=== PATIENT | male | born 1960 | race Caucasian/White ===

== ENCOUNTER 2025-04-12 18:23 | Inpatient (IN) | payer BC, SELFPAY ==
[2025-04-12] VITALS (9 sets, daily range): BP systolic 126–142; BP diastolic 81–109; BMI 25.7
[2025-04-12] MEDS: NSS 1000 IV (13:49)
[2025-04-12 14:02] LABS: Hematocrit 46.2 % (39.0-52.0); Hemoglobin 15.7 g/dL (13.0-18.0); Mean Corp Hgb Conc. 34.0 g/dL (33.0-37.0); Mean Corpuscular Volume 87.5 fL (80.0-94.0); Nucleated Red Blood Cells % 0 % (-); Platelet Count 188 10^3/uL (130-400); Red Cell Dist. Width 13.3 % (11.5-14.5)
[2025-04-12 14:25] LABS: ALT (SGPT) 61 U/L (0-50); AST (SGOT) 33 U/L (17-59); Albumin 4.7 g/dl (3.5-5.0); Alkaline Phosphatase 66 U/L (38-126); Blood Urea Nitrogen 22 mg/dl (9-20); Calcium 10.1 mg/dl (8.4-10.2); Carbon Dioxide 20 mmol/L (22-30); Chloride 107 mmol/L (98-107); Glucose 106 mg/dl (70-99); Magnesium 2.0 mg/dl (1.6-2.3); Potassium 5.1 mmol/L (3.5-5.1); Sodium 138 mmol/L (135-145); Total Protein 7.3 g/dl (6.3-8.2); eGFR > 60.00
[2025-04-12 14:32] LABS: Troponin I 0.059 ng/ml
[2025-04-12] MEDS: LASIX 40 MG IV (17:26)
--- NOTE | 2025-04-12 17:32 | HPS.HSE ---
Family Physician
-
Family Physician: Hermilo Suarez
Chief Complaint
-
exertional dyspnea
History of Present Illness
Patient is a 65-year-old male with past medical history significant for hypertension and insomnia who presented to [facility] ED for evaluation of exertional dyspnea. Patient reports having exertional dyspnea for about a week and then noticed tachycardia
on his smart watch. He contacted his primary care provider who referred him for evaluation and treatment in ED. Patient denies any fever, chills, dizziness, palpitations, cough, chest pain, nausea, vomiting, constipation, diarrhea or urinary
symptoms.
Medical History
Past Medical History
Past Medical History: Reports Other
Additional Past Medical History:
hypertension
insomnia
Past Surgical History: Reports Other
Additional Past Surgical History:
lipoma removed from base of neck
Social History
Tobacco: Vaping (vapes nicotine daily )
Alcohol: Occasional
Drug: None
Personal:
Living: With Family
Family History
Family History: Not pertinent
Allergies / Home Medications
Allergies reflects when Allergies were last updated in [employer].
Home Medications with original date entered in [employer]
Allergy/Medication List:
Allergies
Allergy/AdvReac Type Severity Reaction Status Date / Time
No Known Allergies Allergy Verified 04/12/25 11:29
Home Medications
amitriptyline 25 mg tablet 25 mg PO HS Mental Health/Anxiety 04/12/25
aspirin 81 mg tablet,delayed release 81 mg PO DAILY Heart Disease/Condition 04/12/25
calcium polycarbophil 625 mg tablet (FiberCon) 1,250 mg PO BID Supplement 04/12/25
lisinopril 20 mg tablet 20 mg PO HS Blood Pressure 04/12/25
therapeutic multivitamin 1 tab PO DAILY Supplement 04/12/25
Review of Systems
-
History Source: Patient
Constitutional: Reports No Symptoms
EENT: Reports No Symptoms
Respiratory: Reports Trouble Breathing (exertional dyspnea )
Cardiac: Reports No Symptoms
Abdomen/GI: Reports No Symptoms
: Reports No Symptoms
Musculoskeletal: Reports No Symptoms
Skin: Reports No Symptoms
Neurological: Reports No Symptoms
Endocrine: Reports No Symptoms
Hematologic/Lymphatic: Reports No Symptoms
Psych: Reports No Symptoms
Physical Exam
Vital Signs
Vital Signs
Temp Pulse Resp BP Pulse Ox
98.0 F 100 21 131/98 96
04/12/25 11:26 04/12/25 16:00 04/12/25 16:00 04/12/25 16:00 04/12/25 16:00
Physical Exam
General: Well Developed, Well Nourished, No Apparent Distress, Comfortable and Conversant
HEENT: NormoCephalic, Moist mucous membranes, Atraumatic, Nose Appears Normal and Ears Appear Normal
Respiratory: Clear and Non Labored Respirations
Cardiac: S1/S2, Regular Rhythm and Tachycardia
Breast: Deferred by me
GI: Soft, Non Tender, Non Distended and Normal Bowel Sounds; No Organomegaly
Rectal: Deferred by Provider
Genito-urinary: Deferred by me
Musculoskeletal: No Clubbing, No Cyanosis and No Edema
Skin: Warm and IV/Catheter Site
Neuro: Awake, Alert, AO x 3 and Nonfocal/grossly intact
Psych: Calm and Intact Judgment/Insight
Laboratory Results
-
04/12/25 13:48
04/12/25 13:48
Laboratory Results
Total Bilirubin 0.9 mg/dl (0.2-1.3) 04/12/25 13:48
AST 33 U/L (17-59) 04/12/25 13:48
ALT 61 U/L (0-50) H 04/12/25 13:48
Alkaline Phosphatase 66 U/L (38-126) 04/12/25 13:48
Troponin I 0.059 ng/ml H* 04/12/25 13:48
Data Reviewed
-
CT Scan: Report Reviewed by me (Chest: No CTA evidence for an acute pulmonary thromboembolism. Findings most suggestive of pulmonary edema with moderate bilateral pleural effusions, hazy bilateral groundglass pulmonary opacities, and cardiomegaly.
Suspected degree of right heart failure with contrast reflux from the right atrium )
Lab Data: Labs Reviewed by me (WBC 12.8, Neut 80.1, trop 0.059, BNP 4120)
Impression/Plan
-
IMPRESSION/PLAN:
#exertional dyspnea with fluid overload likely 2/2 acute congestive heart failure exacerbation
Chest CT: No CTA evidence for an acute pulmonary thromboembolism.
Findings most suggestive of pulmonary edema with moderate bilateral pleural effusions, hazy bilateral groundglass pulmonary opacities, and cardiomegaly. Suspected degree of right heart failure
with contrast reflux from the right atrium into the IVC.
EKG: SINUS TACHYCARDIA WITH OCCASIONAL PREMATURE VENTRICULAR COMPLEXES
RIGHTWARD AXIS
LOW VOLTAGE QRS
NONSPECIFIC T WAVE ABNORMALITY
- Admit to telemetry
- Consult Cardiology
- IV Lasix 40mg daily
- ECHO in AM
- daily weights
- I & Os
#hypertension
- continue lisinopril
#insomnia
- continue amitriptyline
Code status: full code
DVT prophylaxis: lovenox sq
--- NOTE | 2025-04-12 18:04 | W.PN.UPDATE ---
Update Note
Progress Note Update
This is an addendum to H&P written by Merlene Patterson on 04/12/2025. �Patient seen and examined independently with [facility].
65-year-old male past medical history of hypertension, presenting with shortness of breath for the past week with exertion with some cough and elevated heart rate noticed on smart watch. �No swelling or chest pain. �No fevers or chills.
Cardiac BNP of 4000. �Troponin 0.059. �Labs show leukocytosis. �EKG shows sinus tachycardia with occasional PVCs. �CT PE shows pulmonary edema with moderate bilateral pleural effusions, hazy bilateral groundglass pulmonary opacities and cardiomegaly.
Patient with new onset acute CHF exacerbation with moderate bilateral pleural effusions. �40 IV Lasix daily, echocardiogram. �Cardiology consulted. �Patient with minimal symptoms, hold off on thoracentesis at this time.
--- NOTE | 2025-04-12 18:12 | ED.GENMED ---
History of Present Illness
<Sammie Lopez PA-C - Last Filed: 04/12/25 18:14>
General
Chief Complaint: Heart Rate Problem
Source: patient
Exam Limitations: none
Time Seen by Provider: 04/12/25 13:15
Nursing documentation reviewed up to this point in time: agreed with
History of Present Illness
History of Present Illness:
65 y/o M h/o HTN
here with 1 week of dyspnea, feels it worse at night, says he noticed he had trouble runnin cecy the treadmill last week due to fatigue which is unusual
but then specifically the past 2 days has felt pretty sob
no ches tpain or pleuritic pain
no exertional chest pain
says he noticed his resting HR was > 100 which is very unusal
no fever/chills/cough/cold/leg swelling
sent from PCP office today for abnormal ekg
Course
<Sammie Lopez PA-C - Last Filed: 04/12/25 18:14>
Orders/Labs/Results
Orders:
Orders
04/12/25 11:21
Electrocardiogram (*1) Urgent
Reason for Study: Chest Pain
EKG- Treatment ONCE
04/12/25 13:39
0.9% Sodium Chloride 1000 ml [Nss] 1,000 ml IV BOLUS
04/12/25 13:40
CT Chest PE Study Urgent
Comment:
Reason For Exam: tachycardia, sob
04/12/25 13:48
Complete Blood Count/With Diff Urgent
Comprehensive Metabolic Panel Urgent
Magnesium Urgent
NT-proBNP Urgent
TSH Reflex To Free T4 Urgent
Troponin I Urgent
04/12/25 17:02
Furosemide [Lasix] 40 mg IV NOW STA
04/12/25 17:12
Furosemide [Lasix] 40 mg IV NOW STA
04/12/25 17:57
Admit/Transfer Patient As Directed
Co-Sign Provider:
Level of Care: Inpatient admission
Assign to:: Telemetry
Physician / Group: Natalya Shirley
Diagnosis: acute congestive heart failure exacerbation
Reason for Telemetry: Acute Heart Failure
Date to Stop Telemetry: 04/15/25
Time to Stop Telemetry: 11:00
Reason for Hospitalization: exertional dyspnea, with fluid overload, acute congestive heart failure
exacerbation
Expected length of stay greater than two midnights?: Yes
ELOS- Estimated Length of Stay in days: 2
I certify the patient meets the requirements for IP care: Yes
04/12/25 17:58
PRN Pain Medication Management As Directed
May give lesser potent ordered pain med per pt: Yes
preference::
Protocol:: Medication orders for pain may be administered in a
manner that supports deferring to patient preference
when the pt is:
- Requesting an ordered lesser potent pain medication.
Least to most potent pain medications are defined
as: acetaminophen < NSAID < tramadol < opioids
(morphine, oxycodone, hydromorphone).
- Requesting a lesser dose of the same medication IF
ORDERED.
- Requesting a less intrusive route of administration
if both routes are prescribed by the provider (PO <
IV).
04/12/25 17:59
Code Status As Directed
Resuscitation Status: Full Code
04/15/25 11:00
DC Protocol for Telemetry ONCE
Abnormal Lab Results
04/12/25
13:48
WBC 12.8 H 10^3/uL
(4.8-10.8)
MPV 12.9 H fL
(7.4-10.4)
Absolute Neuts (auto) 10.2 H 10^3/uL
(1.4-6.5)
Neutrophils % 80.1 H %
(42.2-75.2)
Lymphocytes % 15.5 L %
(20.5-51.1)
Carbon Dioxide 20 L mmol/L
(22-30)
BUN 22 H mg/dl
(9-20)
Glucose 106 H mg/dl
(70-99)
ALT 61 H U/L
(0-50)
Troponin I 0.059 H* ng/ml
04/12/25 13:48
04/12/25 13:48
Vital Signs
Initial and Last Documented VS:
Initial Vital Signs
Temp Pulse Resp BP Pulse Ox
98.0 F 117 16 140/103 98
04/12/25 11:26 04/12/25 11:26 04/12/25 11:26 04/12/25 11:26 04/12/25 11:26
Last Documented Vital Signs
Temp Pulse Resp BP Pulse Ox
98.0 F 107 20 131/98 96
04/12/25 11:26 04/12/25 17:30 04/12/25 17:30 04/12/25 16:00 04/12/25 18:14
<An Garay MD - Last Filed: 04/12/25 18:34>
Orders/Labs/Results
Orders:
Orders
04/12/25 11:21
Electrocardiogram (*1) Urgent
Reason for Study: Chest Pain
EKG- Treatment ONCE
04/12/25 13:39
0.9% Sodium Chloride 1000 ml [Nss] 1,000 ml IV BOLUS
04/12/25 13:40
CT Chest PE Study Urgent
Comment:
Reason For Exam: tachycardia, sob
04/12/25 13:48
Complete Blood Count/With Diff Urgent
Comprehensive Metabolic Panel Urgent
Magnesium Urgent
NT-proBNP Urgent
TSH Reflex To Free T4 Urgent
Troponin I Urgent
04/12/25 17:02
Furosemide [Lasix] 40 mg IV NOW STA
04/12/25 17:12
Furosemide [Lasix] 40 mg IV NOW STA
04/12/25 17:57
Admit/Transfer Patient As Directed
Co-Sign Provider:
Level of Care: Inpatient admission
Assign to:: Telemetry
Physician / Group: Natalya Shirley
Diagnosis: acute congestive heart failure exacerbation
Reason for Telemetry: Acute Heart Failure
Date to Stop Telemetry: 04/15/25
Time to Stop Telemetry: 11:00
Reason for Hospitalization: exertional dyspnea, with fluid overload, acute congestive heart failure
exacerbation
Expected length of stay greater than two midnights?: Yes
ELOS- Estimated Length of Stay in days: 2
I certify the patient meets the requirements for IP care: Yes
04/12/25 17:58
PRN Pain Medication Management As Directed
May give lesser potent ordered pain med per pt: Yes
preference::
Protocol:: Medication orders for pain may be administered in a
manner that supports deferring to patient preference
when the pt is:
- Requesting an ordered lesser potent pain medication.
Least to most potent pain medications are defined
as: acetaminophen < NSAID < tramadol < opioids
(morphine, oxycodone, hydromorphone).
- Requesting a lesser dose of the same medication IF
ORDERED.
- Requesting a less intrusive route of administration
if both routes are prescribed by the provider (PO <
IV).
04/12/25 17:59
Code Status As Directed
Resuscitation Status: Full Code
04/15/25 11:00
DC Protocol for Telemetry ONCE
Abnormal Lab Results
04/12/25
13:48
WBC 12.8 H 10^3/uL
(4.8-10.8)
MPV 12.9 H fL
(7.4-10.4)
Absolute Neuts (auto) 10.2 H 10^3/uL
(1.4-6.5)
Neutrophils % 80.1 H %
(42.2-75.2)
Lymphocytes % 15.5 L %
(20.5-51.1)
Carbon Dioxide 20 L mmol/L
(22-30)
BUN 22 H mg/dl
(9-20)
Glucose 106 H mg/dl
(70-99)
ALT 61 H U/L
(0-50)
Troponin I 0.059 H* ng/ml
04/12/25 13:48
04/12/25 13:48
Vital Signs
Initial and Last Documented VS:
Initial Vital Signs
Temp Pulse Resp BP Pulse Ox
98.0 F 117 16 140/103 98
04/12/25 11:26 04/12/25 11:26 04/12/25 11:26 04/12/25 11:26 04/12/25 11:26
Last Documented Vital Signs
Temp Pulse Resp BP Pulse Ox
98.0 F 107 20 131/98 96
04/12/25 11:26 04/12/25 17:30 04/12/25 17:30 04/12/25 16:00 04/12/25 18:14
<Sammie Lopez PA-C - Last Filed: 04/12/25 18:14>
*Pulse Oximetry
SaO2: 96
Oxygen Mode of Delivery: Room air
ED Attending Note
<Sammie Lopez PA-C - Last Filed: 04/12/25 18:14>
-
Portions of this chart may have been created with voice recognition software.� Occasional wrong word or��sound alike� substitutions may have occurred due to the inherent limitations of voice recognition software.
<An Garay MD - Last Filed: 04/12/25 18:34>
ED Attending Note
Patient seen and examined by attending physician: Yes
I performed the substantive portion of visit, reviewed & personally made and approve the management plan that is documented in note by myself or ESTEBAN.: Yes
ED Attending Note:
I have seen and evaluated the patient with a [id number] encounter. I have spoken to the [ESTEBAN] and involved in the medical history, the physical exam, medical decision making.
Evaluation and management service: agree unless noted differently below.
Results interpretation: agree unless noted differently below.
65-year-old male with history of hypertension presenting to the emergency room with shortness of breath. Patient states that last week he noticed that when he was running or exerting himself he would be more tired and short of breath. Denies any
chest pain. He does state that the difficulty breathing is worse when he lies flat. No leg swelling hemoptysis recent travel. Today went to his primary care doctor who obtained an EKG and told him to come to the emergency for further evaluation.
During my evaluation patient is resting comfortably. He does have very fine crackles at the bases. No edema to the legs. Concern for new onset heart failure versus ACS. EKG per my interpretation with no acute ST changes. Will check blood work
and CT scan. Anticipate admission.
Discharge Plan
Departure
Patient Disposition: Admit
Date of Disposition: 04/12/25
Time of Disposition: 17:27
Admit to: Telemetry
Presentation/result/management discussed w/ accepting MD/DO: Hospitalist
Patient with high blood pressure during this ER visit?: Yes
Condition: Fair
Covid-19: Not Applicable
Discharge Problem:
New onset of congestive heart failure
Interventions
Interventions:
*Risk Screen - Suicide Last Done: 04/12/25 11:26
*General Assessment Last Done: 04/12/25 12:38
*Neglect/Abuse Screening Last Done: 04/12/25 11:26
*ED- Fall Risk Assessment Last Done: 04/12/25 12:38
*ED COVID-19 Vaccine History Last Done: 04/12/25 12:38
ED- Cardiac Assessment Last Done: 04/12/25 12:38
ED- Pulmonary Assessment Last Done: 04/12/25 12:38
[2025-04-12 20:32] LABS: Troponin I 0.069 ng/ml
[2025-04-12] MEDS: ZESTRIL 20 MG PO (20:37)
[2025-04-12] MEDS: FIBERCON 1250 MG PO (20:38)
[2025-04-12] MEDS: ELAVIL 25 MG PO (20:38)
[2025-04-13] VITALS (12 sets, daily range): BP systolic 103–133; BP diastolic 72–98; BMI 25.3
[2025-04-13 03:09] LABS: Troponin I 0.083 ng/ml
[2025-04-13 07:35] LABS: Blood Urea Nitrogen 22 mg/dl (9-20); Calcium 9.5 mg/dl (8.4-10.2); Carbon Dioxide 28 mmol/L (22-30); Chloride 108 mmol/L (98-107); Estimated Creatinine Clearance 87 ml/min; Glucose 112 mg/dl (70-99); HDL Cholesterol 41 mg/dl; LDL Cholesterol, Calculated 103 mg/dl; Potassium 5.1 mmol/L (3.5-5.1); Sodium 144 mmol/L (135-145); Very Low Density Lipoprotein 18 mg/dl (0-30); eGFR > 60.00
[2025-04-13 07:37] LABS: Troponin I 0.078 ng/ml
--- NOTE | 2025-04-13 08:23 | CON.CAR ---
Addendum entered and electronically signed by Andrea Copeland MD 04/13/25 11:24:
Attending addendum: Patient seen and examined. PA note reviewed and findings independently confirmed by me. I met with patient and his and performed independent history and physical exam. Briefly, this is a physically active 65-year-old
gentleman who presented to [facility] with a relatively recent onset of PND and exertional dyspnea. He noted that his heart rates were a little bit elevated and that he was physically more short of breath with exertion. At baseline, Mr. Alex (~) is physically active. He runs intermittently somewhere between 3 and 5 miles and walks a golf course carrying his bag. He has noticed no significant change in these activities over the past several weeks but did notice that he was more
short of breath when performing higher levels of physical exertion. Ultimately, his mildly elevated heart rate and exertional intolerance as well as PND led him to seek medical attention.
He does have a past history of hypertension treated with lisinopril 20 mg daily. Home blood pressures are typically very well-controlled.
Serial troponin measures just above the normal range at 0.069, 0.083, and 0.078 ng/mL
Echocardiogram: LVEF estimated 15-20% and is globally hypokinetic by visual estimation and 20% by Noble's method of discs. RV: Dilated, LA: Severely dilated, RA: Moderately dilated, MV: Severe mitral regurgitation, AV: Thickened and sclerotic
with mild aortic insufficiency, TV: Mild-moderate TR with estimated PAP is a 48 mmHg
Physical Exam
GEN: AAO x 3.��No acute distress. He is sitting in a chair in no acute distress. Speaks in full sentences. Does not appear dyspneic.
HEENT:��NC/AT, sclera are anicteric, hearing and nares are normal.��MMM
NECK: Supple.��Normal JVP
LUNGS: Clear to bases bilaterally.��No wheezing
CV: Regular rate and rhythm.��Normal S1/S2.��No S3, No S4.��Murmur: None appreciated
ABD : Soft, NT, ND, No HSM.��Bowel sounds are present.
EXT: No CCE
NEURO: No focal neurologic deficits
Social history: No alcohol. Former smoker. Current vaping
IMPRESSION/RECOMMENDATION:
- Newly diagnosed cardiomyopathy with acute heart failure symptoms
No anginal symptoms. No history of alcohol use. No recent viral illness.
Will proceed with right and left heart catheterization to delineate etiology for newly diagnosed cardiomyopathy
Will likely need guideline directed medical therapy for heart failure to include oral beta-jose carlos, CARMEN/ARB, spironolactone, and SGLT2 versus GLP-1 depending on results of angiogram
Hemodynamics will be assessed at the time of catheterization
Discussed the risks and benefits of proceeding with coronary angiography and possible stenting
-Severe mitral regurgitation
Appears to be secondary mitral regurgitation from dilated cardiomyopathy as the mitral valve structurally appears normal.
Will need guideline directed medical therapy
Could consider ALEJANDRA to evaluate for structural cause of significant mitral regurgitation
-History of former tobacco use with current vape
-Elevated glucose
-Recent lipid profile was notable for an LDL cholesterol of 103 mg/dL. Await results of coronary angiography to determine if additional of statin therapy will be needed
Original Note:
Consultation
Consultation Request
Date/Time Consultation Requested: 04/12/2025 and 190
Date/Time Consultation Performed: 04/13/2025 at 0834
Requesting Provider: Dr. Amarjit Negrete
Performing Provider: Dr. Abebe
Reason for Consultation: Newly diagnosed acute HF unknown EF
Medical History
-
History of Present Illness:
Patient came to [facility] ER yesterday with increased SOB and was admitted with acute HF and cardiology is now consulted. 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 He also follow his HR on [employer] watch and 1 week
ago noted that his HR was consistently 80-90 instead of his usual 50-60, but no associated palpitations. Also last week patient with new fatigue and exercise intolerance. No edema or bloating, but started with orthopnea on Saturday and saw his PCP
yesterday and then referred to the ER where pro-BNP was 4120 and CXR showed pleural effusion. Patient reports symptomatic improve with IV diuresis overnight.
PMH:
h/o smoking, now vaping
HTN
Past Medical History
Past Medical History: Other (In HPI)
Past Surgical History: None
Social History
Tobacco: Vaping
Alcohol: Occasional
Drug: None
Personal:
Living: With Family
Family History
Family History: CAD (father with CAD in his 80s)
Allergies / Home Medications
Allergy/AdvReac Type Severity Reaction Status Date / Time
No Known Allergies Allergy Verified 04/12/25 11:29
�Medication �Instructions �Recorded �Confirmed �Type
amitriptyline 25 mg tablet 25 mg PO HS Mental Health/Anxiety 04/12/25 04/12/25 History
aspirin 81 mg tablet,delayed 81 mg PO DAILY Heart 04/12/25 04/12/25 History
release Disease/Condition
calcium polycarbophil 625 mg 1,250 mg PO BID Supplement 04/12/25 04/12/25 History
tablet (FiberCon)
lisinopril 20 mg tablet 20 mg PO HS Blood Pressure 04/12/25 04/12/25 History
therapeutic multivitamin 1 tab PO DAILY Supplement 04/12/25 04/12/25 History
Review of Systems
-
History Source: Patient and Family ( by phone in room)
All other systems: Negative unless noted
Physical Exam
Vital Signs
Temp Pulse Resp BP Pulse Ox
97.8 F 104 18 133/98 96
04/13/25 07:08 04/13/25 07:08 04/13/25 07:08 04/13/25 07:08 04/13/25 07:08
GEN: NAD. AAOx3
HEENT: EOMI, MMM
LUNGS: RA. CTA B/L, no wheeze
CV: Sinus tachycardia on tele. No murmur
ABD: soft, BS+, NT/ND
EXT: No edema
NEURO: Gross non-focal
SKIN: No rash
Lab Results
04/12/25 13:48
04/13/25 06:56
Troponin I 0.078 ng/ml H* 04/13/25 06:56
Rrk-G-Gqwhlrdwbrz Pept 4120 pg/ml 04/12/25 13:48
Impression / Plan
-
PCP: Dr. Suarez
Cardiology: None prior to admission
Impression:
Admitted with acute HF 04/12/2025
Acute HFrEF
Newly diagnosed cardiomyopathy, EF 15 to 20% by echo 04/13/2025
Elevated troponin
h/o smoking, now vaping
HTN
Hyperglycemia
Severe MR by echo 04/13/2025
Echo 04/13/2025: EF 15 to 20%, RV dilated with reduced systolic function, severe LA dilatation and moderate RA dilatation, severe MR, mild aortic insufficiency, mild to moderate TR with PAP 48 mmHg
Plan:
-Patient came to [facility] ER yesterday with increased SOB and was admitted with acute HF and cardiology is now consulted. 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 He also follow his HR on [employer] and 1 week
ago noted that his HR was consistently 80-90 instead of his usual 50-60, but no associated palpitations. Also last week patient with new fatigue and exercise intolerance. No edema or bloating, but started with orthopnea on Saturday and saw his PCP
yesterday and then referred to the ER where pro-BNP was 4120 and CXR showed pleural effusion. Patient reports symptomatic improve with IV diuresis overnight.
-ECG reviewed by me looks like sinus tachycardia,, but no previous for comparison. Will ask EP to review and exclude any type of atypical atrial tachycardia
-Patient noticed HR was 80-90 instead of his usual 50-60, but this just started last week and no associated palpitations. Patient has not been on BB before, but is willing to try Coreg 3.125 mg BID
-Outpatient dose of lisinopril 20 mg daily has been continued
-Patient is willing to start Farxiga 10 mg daily, we specifically reviewed watching for and groin infections.
-Follow labs and patient willing to start spironolactone 12.5 mg daily.
-Weight is down 4 lbs overnight with Lasix 40 mg IV daily
-Troponin 0.059 initially and peaked at 0.083 and is now trending down. No chest pain. No acute ischemic changes on ECG. Given new CM patient recommended cardiac catheterization to exclude CAD. We talked about risk versus benefit and he is
willing to proceed. Plan is for cardiac cath today
-Patient is hyperglycemic, HgbA1c level added by me
-LDL 103, pending results of cardiac cath would consider starting atorvastatin
-Talked with patient's by phone for 13 minutes 46 seconds, essentially throughout the HPI. Updated hospitalist attending via TT about plans for cath today
[2025-04-13] MEDS: FIBERCON 1250 MG PO ×2 (08:39→21:03)
[2025-04-13] MEDS: ASPIR LOW (ENTERIC COATED) 81 MG PO (08:39)
[2025-04-13] MEDS: LASIX 40 MG IV (08:39)
[2025-04-13] MEDS: THERAGRAN 1 TABLET PO (08:39)
[2025-04-13 12:57] LABS: Glycohemoglobin (HgbA1c) 5.7 % (4.0-5.6)
--- NOTE | 2025-04-13 13:47 | ITS.CL.CATH ---
[employer] - Catheterization
Cardiac Catheterization
Procedure Report:
RIGHT AND LEFT HEART STUDY
Date of Procedure: April 13, 2025
Referring: Dr. Andrea Copeland
PROCEDURES:
1. Right heart catheterization
2. Left heart catheterization with coronary and single-plane left ventriculography
INDICATION: Newly diagnosed cardiomyopathy and acute heart failure
ACCESS: Right radial artery, 6 [place] sheath in right brachial vein, 5 [place] sheath
HEMODYNAMICS : mmHg
RA (m) : 15
RV (s/d) : 46/14, 19
PA (s/d, m) : 44/27, 39
PCWP (m) : 30
AO (s/d, m) : 116/86, 97
LV (s/d) : 114/20
LVEDP : 33
Estimated [place] Cardiac Output: 4.2 L / min and Cardiac Index: 2.1 L/ min / m-2
Systemic vascular resistance: 19.5 Wood units or 1562 [id number](-5)
Pulmonary vascular resistance: 2.1 Wood units or 171 [id number](-5)
CORONARY FINDINGS :
Dominance: Right
LEFT MAIN: Mild ostial mild distal stenosis
LEFT ANTERIOR DESCENDING: The LAD arises normally from the left main and runs in the anterior interventricular groove. The mid LAD has a 20% stenosis. The remainder of the vessel is widely patent.
CIRCUMFLEX: The circumflex supplies a single sizable obtuse marginal branch that has a 30% proximal stenosis
RIGHT CORONARY ARTERY: The right coronary artery is a dominant vessel with only minor irregularities over its course. The PDA has a 40% mid stenosis. The posterolateral branch appears widely patent
VENTRICULOGRAPHY: Left ventriculography is performed in an PAULINO projection. The digital single-plane left ventricular ejection fraction is visually estimated at 15%. There is+2 to +3 mitral regurgitation
SEDATION: 40 minutes of procedural sedation was utilized. An independent biomedical instrument technician was present to assist with and help manage the patient's level of consciousness and physiologic status
RADIATION SUMMARY: Fluoro Time (min): 4.6, Dose (mGy): 485, DAP (Gy.cm2) : 36.7
CONCLUSIONS
1. Elevated right and left ventricular filling pressures
2. Dilated cardiomyopathy with global hypokinesis and visually estimated ejection fraction of 15%
3. Nonobstructive coronary artery disease
RECOMMENDATIONS
1. Guideline directed medical therapy for nonischemic cardiomyopathy. Add oral beta-jose carlos 12.5 mg metoprolol XL p.o. twice daily with further titration as heart rate and blood pressures tolerates. Continue lisinopril 20 mg daily and consider
the addition of spironolactone, however, baseline potassium is 5.0. Will add SGLT2 inhibitor.
2. Titrate guideline directed medical therapy as tolerated
3. Repeat echocardiogram in 3 months to reassess LVEF
Copy to: Dr. Andrea Copeland
--- NOTE | 2025-04-13 15:52 | W.PN.HOSP.TC ---
Today's Communication/Plan
-
Assessment / Plan
Assessment / Plan
NAD
Scleral Anicteric
MMM
No JVD
CTABL
RRR, S1/S2
Soft, NT, ND, BS+
Warm, Dry
AAOx3
Calm
Acute, new onset HFrEF exacerbation, NYHA class II-III
IV diuretics
Keep K greater than 4 magnesium greater than 2
Daily weights
Monitor urinary output
Continue lisinopril
Started on Farxiga and beta-jose carlos
New reduced EF, will need ischemic evaluation with coronary angiography plus minus intervention
Hypertension
Continue lisinopril
Insomnia
Continue amitriptyline
Anticipated Discharge: 24 - 48 hours
Subjective/Interval History
-
Date of Service: April 13, 2025
Seen and examined. No new complaints. No acute overnight events.
Objective Data
-
Labs:
Laboratory Results
04/13/25
06:56
Sodium 144
Potassium 5.1
Chloride 108 H
Carbon Dioxide 28
BUN 22 H
Creatinine 0.9
Glucose 112 H
Calcium 9.5
Vital Signs:
Vital Signs
Temp Pulse Resp BP Pulse Ox
98.0 F 98 18 114/81 98
04/13/25 14:46 04/13/25 14:46 04/13/25 14:46 04/13/25 14:46 04/13/25 14:46
I&O
04/12/25 04/13/25 04/14/25
06:59 06:59 06:59
Intake Total 240 / 240
Balance 240 / 240
--- NOTE | 2025-04-13 16:07 | CM ---
Patient seen bedside, initial assessment completed. Patient is a 65-year-old male with past medical history significant for hypertension and insomnia who presented to [facility] ED for evaluation of exertional dyspnea.
Patient resides w/ spouse and mother in law in a 2STH, 3 steps to enter. Patient is independent in all areas, no DME. No therapy hx reported.
Address, point of contact and insurance verified
PCP: Hermilo Suarez
Pharmacy: [facility]
CM consulted for charles check for Jardiance and Farxiga.
Patient has rx plan through [employer]. Per plan, Jardiance is covered, for 30 day supply, co pay would be $85, for 90 day co pay would be $170. Farxiga is not covered
Updated ordering physician
Plan: Home, no needs likely
[2025-04-13] MEDS: LOVENOX 40 MG SC (18:11)
--- NOTE | 2025-04-13 21:00 | PTCARENOTE ---
patient with right radial site hematoma. overnight provider notified. this RN advised to manually hold pressure and increase frequency of neurovascular checks. this RN did notify Dr. Marcio Addison, with cardiology. Azael advised, this RN, to
hold additional pressure if needed to assure hemolysis, apply a pressure bandage, and have patient minimize activity overnight. patient laying in bed, with pressure dressing applied, extremity elevated with ice applied. No further bleeding noted.
Neurovascular checks WNL.
[2025-04-13] MEDS: ZESTRIL 20 MG PO (21:02)
[2025-04-13] MEDS: ELAVIL 25 MG PO (21:02)
[2025-04-13] MEDS: TOPROL XL 12.5 MG PO (21:03)
[2025-04-14 02:58] VITALS: BP 107/69
[2025-04-14 06:00] VITALS: BMI 25.3
[2025-04-14 07:08] VITALS: BP 108/72
[2025-04-14] MEDS: FIBERCON 1250 MG PO ×2 (07:32→19:29)
[2025-04-14] MEDS: FARXIGA 10 MG PO (07:33)
[2025-04-14] MEDS: TOPROL XL 12.5 MG PO ×2 (07:33→19:29)
[2025-04-14] MEDS: LASIX 40 MG IV (07:34)
[2025-04-14] MEDS: ASPIR LOW (ENTERIC COATED) 81 MG PO (07:34)
[2025-04-14] MEDS: THERAGRAN 1 TABLET PO (07:34)
[2025-04-14 08:41] LABS: Hematocrit 43.9 % (39.0-52.0); Hemoglobin 14.6 g/dL (13.0-18.0); Mean Corp Hgb Conc. 33.3 g/dL (33.0-37.0); Mean Corpuscular Volume 88.5 fL (80.0-94.0); Platelet Count 161 10^3/uL (130-400); Red Cell Dist. Width 13.6 % (11.5-14.5)
[2025-04-14 09:08] LABS: Blood Urea Nitrogen 28 mg/dl (9-20); Calcium 9.2 mg/dl (8.4-10.2); Carbon Dioxide 25 mmol/L (22-30); Chloride 110 mmol/L (98-107); Estimated Creatinine Clearance 87 ml/min; Glucose 100 mg/dl (70-99); Magnesium 2.2 mg/dl (1.6-2.3); Potassium 4.8 mmol/L (3.5-5.1); Sodium 142 mmol/L (135-145); eGFR > 60.00
[2025-04-14 11:21] VITALS: BP 100/68
--- NOTE | 2025-04-14 13:38 | W.PN.HOSP.TC ---
Today's Communication/Plan
-
Assessment / Plan
Assessment / Plan
NAD
Scleral Anicteric
MMM
No JVD
CTABL
RRR, S1/S2
Soft, NT, ND, BS+
Warm, Dry
AAOx3
Calm
Acute, new onset HFrEF exacerbation, NYHA class II-III
IV diuretics
Keep K greater than 4 magnesium greater than 2
Daily weights
Monitor urinary output
Continue lisinopril
Started on Farxiga and beta-jose carlos
New reduced EF, starteded on GDMT per Cardiology
LHC nonobstructive
Avoid strenous activity
Hypertension
Continue lisinopril
Insomnia
Continue amitriptyline
Anticipated Discharge: 24 - 48 hours
Subjective/Interval History
-
Date of Service: April 14, 2025
seen and examined. no new complaints.
Objective Data
-
Labs:
Laboratory Results
04/14/25 04/14/25
06:41 06:42
WBC 8.7
Hgb 14.6
Hct 43.9
Plt Count 161
Sodium 142
Potassium 4.8
Chloride 110 H
Carbon Dioxide 25
BUN 28 H
Creatinine 0.9
Glucose 100 H
Calcium 9.2
Vital Signs:
Vital Signs
Temp Pulse Resp BP Pulse Ox
97.5 F 80 20 100/68 99
04/14/25 11:21 04/14/25 11:21 04/14/25 11:21 04/14/25 11:21 04/14/25 11:21
I&O
04/13/25 04/14/25 04/15/25
06:59 06:59 06:59
Intake Total 240 / 240 960 / 960
Balance 240 / 240 960 / 960
--- NOTE | 2025-04-14 14:38 | W.PN.CARDCBS ---
Addendum entered and electronically signed by Emani Carrington DO 04/14/25 22:43:
I saw and examined the patient.
The Director Of Institutional Giving's note was reviewed and I agree with the note.
Comment: Patient was seen and examined. Chart and studies reviewed. Sitting out of bed to chair and feeling well with improved shortness of breath. Improved abdominal distention. No chest pain or pressure. Had bleeding overnight at right wrist
site with pressure dressing. Pressure dressing removed with no hematoma. Positive radial/ulnar pulses. No hand pain or weakness
General: No acute distress, AAOX3
Neck: Negative JVD
Heart: Regular, Negative S3 positive S1/2 2/6 SM
Lungs: CTA b/l, negative wheezes/rales/rhonchi
Abd: Positive BS, NT/ND, neg rebound/rigidity/guarding
Ext: no edema. Mild ecchymosis right radial without hematoma. Positive radial/ulnar pulses on the right. Preserved hand strength
Neuro: nonfocal
Plan:
Nonischemic cardiomyopathy with acute heart failure with reduced ejection fraction, etiology unclear
-Left heart catheterization reviewed�atherosclerosis without hemodynamically significant stenosis at a proportion to cardiomyopathy with
-Reviewed patient's history and presenting symptoms, unrevealing for etiology. He does vape with prior tobacco dependence quit over 10 years ago with no other illicit drug use. Rare less than monthly alcohol use. No recent travel or illnesses.
No [id number] supplements or stimulants. No family history for cardiomyopathy or sudden cardiac .
-Continue to optimize goal-directed medical therapy: IV Lasix another 24 hours and then transition to Lasix 40 mg daily. Repeat proBNP prior to discharge. Stop lisinopril and transition to Entresto. Continue Toprol and new Farxiga. Eventually
consider adding Aldactone if able.
-Outpatient cardiac MRI. Outpatient genetic testing
-Consider eventual referral to [facility] advanced heart failure treatment for comanagement
-Repeat 2D echocardiogram in 3 months on goal-directed medical therapy to reassess ejection fraction. If ejection fraction remains less than 35% consider for ICD
-Abnormal cardiac troponin with nonobstructive coronary artery disease�continue aspirin. Atherosclerosis at a proportion to cardiomyopathy; continue statin with goal LDL less than 70 mg/dL
-Heart failure education including nutrition and heart failure symptom monitoring
-Instructed to avoid strenuous activity; cardiac rehab being
-Anticipate possible discharge home tomorrow
Original Note:
Today's Communication / Plan
-
New to atorvastatin 20 mg daily
Lisinopril stopped and after washout will try adding Entresto
Cardiac rehab consulted
Likely d/c to home tomorrow
Impression / Plan
-
PCP: Dr. Suarez
Cardiology: None prior to admission
Impression:
Admitted with acute HF 04/12/2025
Acute HFrEF
Newly diagnosed cardiomyopathy, EF 15 to 20% by echo 04/13/2025
Elevated troponin
Nonobstructive CAD by cardiac cath 04/13/2025
h/o smoking, now vaping
HTN
Hyperglycemia and prediabetes
Severe MR by echo 04/13/2025
Right radial hematoma
Echo 04/13/2025: EF 15 to 20%, RV dilated with reduced systolic function, severe LA dilatation and moderate RA dilatation, severe MR, mild aortic insufficiency, mild to moderate TR with PAP 48 mmHg
Plan:
-Weight down 3 lbs from admission, but no additional diuresis overnight. Overall dramatically improved from an orthopnea standpoint.
-Cont Lasix 40 mg IV daily. Patient was not taking a diuretic prior to admission
-Echo noted above, EF is 15 to 20% and there is severe MR
-New to Toprol XL 12.5 mg BID
-New to Farxiga 10 mg daily
-Outpatient dose of lisinopril 20 mg daily was stopped so that we can add Entresto following washout
-Follow labs and VS, patient willing to start spironolactone 12.5 mg daily.
-Patient noticed HR was 80-90 instead of his usual 50-60, but this just started last week and no associated palpitations.
-Troponin peaked 0.083 and will be managed as a nonischemic myocardial injury troponin elevation
-Patient was nonobstructive CAD by cardiac cath. There was a right radial hematoma overnight that is now resolved and patient is nontender with palpable pulses and good capillary refill.
-Patient is hyperglycemic and HgbA1c is 5.7 consistent with prediabetes
-LDL 103, will start atorvastatin 20 mg daily, ordered by me
-Consult placed to cardiac rehab for acute HFrEF.
HPI: Patient came to [facility] ER yesterday with increased SOB and was admitted with acute HF and cardiology is now consulted. 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 He also follow his HR on smart watch and 1
week ago noted that his HR was consistently 80-90 instead of his usual 50-60, but no associated palpitations. Also last week patient with new fatigue and exercise intolerance. No edema or bloating, but started with orthopnea on Saturday and saw his
PCP yesterday and then referred to the ER where pro-BNP was 4120 and CXR showed pleural effusion. Patient reports symptomatic improve with IV diuresis overnight.
Progress Note - Teacher Of The Sight Impaired
Subjective
Date of Service: April 14, 2025
He feels like he is able to lay flat to sleep
Objective
Labs:
04/14/25 06:42
04/14/25 06:41
Labs
Hgb 14.6 g/dL (13.0-18.0) 04/14/25 06:42
Hct 43.9 % (39.0-52.0) 04/14/25 06:42
Plt Count 161 10^3/uL (130-400) 04/14/25 06:42
Sodium 142 mmol/L (135-145) 04/14/25 06:41
Potassium 4.8 mmol/L (3.5-5.1) 04/14/25 06:41
BUN 28 mg/dl (9-20) H 04/14/25 06:41
Creatinine 0.9 mg/dL (0.7-1.3) 04/14/25 06:41
Glucose 100 mg/dl (70-99) H 04/14/25 06:41
Troponins
04/12/25 04/12/25 04/13/25
13:48 19:51 02:22
Troponin I 0.059 H* 0.069 H* 0.083 H*
04/13/25
06:56
Troponin I 0.078 H*
Vital Signs and I&O:
Vital Signs
Temp Pulse Resp BP Pulse Ox
97.5 F 80 20 100/68 99
04/14/25 11:21 04/14/25 11:21 04/14/25 11:21 04/14/25 11:21 04/14/25 11:21
Vital Signs
Temp Pulse Resp BP Pulse Ox
97.5 F 80 20 100/68 99
04/14/25 11:21 04/14/25 11:21 04/14/25 11:21 04/14/25 11:21 04/14/25 11:21
Intake & Output
04/12/25 04/13/25 04/14/25 04/15/25
06:59 06:59 06:59 06:59
Intake Total 240 / 240 960 / 960
Balance 240 / 240 960 / 960
Physical Exam
Physical Exam
GEN: NAD. AAOx3
LUNGS: RA.
CV: SR on tele. Right radial with ecchymosis, but no hematoma or tenderness
[2025-04-14 15:20] VITALS: BP 112/78
[2025-04-14] MEDS: LOVENOX 40 MG SC (17:27)
[2025-04-14] MEDS: LIPITOR 20 MG PO (17:27)
[2025-04-14] MEDS: ELAVIL 25 MG PO (19:29)
[2025-04-14 19:55] VITALS: BP 113/79
[2025-04-14 23:09] VITALS: BP 116/75
[2025-04-15 03:35] VITALS: BP 97/65
[2025-04-15 06:00] VITALS: BMI 24.4
[2025-04-15 07:00] VITALS: BP 122/79
[2025-04-15] MEDS: FIBERCON 1250 MG PO (07:45)
[2025-04-15] MEDS: TOPROL XL 12.5 MG PO (07:45)
[2025-04-15] MEDS: LASIX 40 MG IV (07:45)
[2025-04-15] MEDS: ASPIR LOW (ENTERIC COATED) 81 MG PO (07:45)
[2025-04-15] MEDS: FARXIGA 10 MG PO (07:45)
[2025-04-15] MEDS: THERAGRAN 1 TABLET PO (07:45)
[2025-04-15 08:15] LABS: Blood Urea Nitrogen 37 mg/dl (9-20); Calcium 9.8 mg/dl (8.4-10.2); Carbon Dioxide 29 mmol/L (22-30); Chloride 107 mmol/L (98-107); Estimated Creatinine Clearance 78 ml/min; Glucose 109 mg/dl (70-99); Potassium 5.4 mmol/L (3.5-5.1); Sodium 143 mmol/L (135-145); eGFR > 60.00
--- NOTE | 2025-04-15 09:10 | W.PN.CARDCBS ---
Addendum entered and electronically signed by Malik Mathews MD 04/15/25 14:47:
Patient seen, interviewed and examined by me.
Well-appearing, no acute distress
Regular rate and rhythm with normal S1 and S2, no S3 no S4. There is a grade 1/6 apical holosystolic murmur and no rubs. PMI is normally placed.
Lungs are clear to auscultation bilaterally without wheezes rales or rhonchi.
Abdomen soft nontender nondistended with normoactive bowel sounds
Extremities show trace pretibial edema bilaterally no clubbing or cyanosis.
Neurologic exam is grossly nonfocal.
Admitted with acute decompensated heart failure which is heart failure with reduced ejection fraction, cardiomyopathy is a new diagnosis.
Coronary angiography April 13, 2025 reveals nonobstructive coronary artery disease.
Clinically he is markedly improved.
If hyperkalemia is felt stabilized, he can be considered for discharge to home.
As an outpatient there will be consideration for cardiac MRI as well as for genetic testing as we do not have a clear etiology for his not infarct related cardiomyopathy.
Maintain Farxiga 10 mg daily, Toprol-XL 12.5 mg twice daily, Lasix 40 mg daily.
We are holding off on CARMEN inhibitor/ARB, Entresto, spironolactone consideration at present due to hyperkalemia.
Original Note:
Today's Communication / Plan
-
Appears euvolemic, transition to PO lasix 40 mg daily
Continue Toprol.
Continue Farxiga 10 mg daily while admitted, transition to Jardiance 10mg daily at discharge due to insurance coverage.
Hyperkalemia noted this AM. s/p Lokelma. Lisinopril on hold.
Await repeat labs this afternoon. May consider addition of Entresto eventually
Will need repeat echo after 3 months
Cardiology follow up arranged.
Impression / Plan
-
PCP: Dr. Suarez
Cardiology: None prior to admission, initially seen by Dr. Copeland
Impression:
Admitted with acute HF 04/12/2025
Acute HFrEF
Newly diagnosed cardiomyopathy, EF 15 to 20% by echo 04/13/2025
Nonischemic myocardial injury
Nonobstructive CAD by cardiac cath 04/13/2025
h/o smoking, now vaping
HTN
Hyperglycemia and prediabetes
Severe MR by echo 04/13/2025
Right radial hematoma
Echo 04/13/2025: EF 15 to 20%, RV dilated with reduced systolic function, severe LA dilatation and moderate RA dilatation, severe MR, mild aortic insufficiency, mild to moderate TR with PAP 48 mmHg
Plan:
-Presented with increased SOB, admitted with acute heart failure.
-Diuresing with IV lasix 40mg daily. Weight down to 170 lbs 04/15, down 6lbs overnight. Breathing improved. Feels well with no complaints at this time.
-Creat stable at 1.0. Continue daily weights, I&Os. Will transition to PO lasix40 mg daily as he appears euvolemic.
-CHF education.
-Echo 04/13 w/ EF 15-20% w/ severe MR as above.
-Underwent LHC 04/13 due to new CM and noted to have nonobstructive CAD. R radial hematoma noted post cath, resolved. Continue aspirin 81mg daily.
-New to Toprol and Farxiga this admission. Will transition to Jardiance 10mg daily at discharge. (Farxiga not covered per CM note)
-OP lisinopril has been on hold in hopes of adding Entresto following washout. Hold off for now w/ K up to 5.4. Given Lokelma this AM.
-With hyperkalemia, will hold off on adding spironolactone for now.
-Await repeat labs this afternoon.
-Elevated troponin noted, peaking at 0.083 and trending down thereafter. Suspect nonischemic myocardial injury in the setting of acute heart failure.
-New to Lipitor 20mg daily. LDL 103 this admission.
-Hgb A1c 5.7%, consistent with pre-DM. Management per primary service.
-Cardiology follow up arranged. Will need to be arranged for echo after 3 months of medical therapy to reassess EF.
HPI: Patient came to [facility] ER yesterday with increased SOB and was admitted with acute HF and cardiology is now consulted. 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 He also follow his HR on smart watch and 1
week ago noted that his HR was consistently 80-90 instead of his usual 50-60, but no associated palpitations. Also last week patient with new fatigue and exercise intolerance. No edema or bloating, but started with orthopnea on Saturday and saw his
PCP yesterday and then referred to the ER where pro-BNP was 4120 and CXR showed pleural effusion. Patient reports symptomatic improve with IV diuresis overnight.
Progress Note - Growth Hacker
Subjective
Date of Service: April 15, 2025
Feels well. No chest pain, SOB, or edema.
Objective
Labs:
04/14/25 06:42
04/15/25 06:40
Labs
Hgb 14.6 g/dL (13.0-18.0) 04/14/25 06:42
Hct 43.9 % (39.0-52.0) 04/14/25 06:42
Plt Count 161 10^3/uL (130-400) 04/14/25 06:42
Sodium 143 mmol/L (135-145) 04/15/25 06:40
Potassium 5.4 mmol/L (3.5-5.1) H 04/15/25 06:40
BUN 37 mg/dl (9-20) H 04/15/25 06:40
Creatinine 1.0 mg/dL (0.7-1.3) 04/15/25 06:40
Glucose 109 mg/dl (70-99) H 04/15/25 06:40
Troponins
04/12/25 04/12/25 04/13/25
13:48 19:51 02:22
Troponin I 0.059 H* 0.069 H* 0.083 H*
04/13/25
06:56
Troponin I 0.078 H*
Vital Signs and I&O:
Vital Signs
Temp Pulse Resp BP Pulse Ox
98.4 F 103 20 122/79 100
04/15/25 07:00 04/15/25 07:45 04/15/25 07:00 04/15/25 07:45 04/15/25 07:00
Vital Signs
Temp Pulse Resp BP Pulse Ox
98.4 F 103 20 122/79 100
04/15/25 07:00 04/15/25 07:45 04/15/25 07:00 04/15/25 07:45 04/15/25 07:00
Intake & Output
04/13/25 04/14/25 04/15/25 04/16/25
06:59 06:59 06:59 06:59
Intake Total 240 / 240 960 / 960 720 / 720
Balance 240 / 240 960 / 960 720 / 720
Physical Exam
Physical Exam
GEN: No distress, awake, alert, oriented x3
HEENT: supple, anicteric, mmm
LUNGS: CTA b/l, no wheezes/rales
CV: Reg, S1/S2, 2/6 syst murmur
EXT: No clubbing, cyanosis, or edema
NEURO: Gross non-focal
SKIN: Warm, dry, no rash
[2025-04-15] MEDS: LOKELMA 10 GRAM PO (09:56)
[2025-04-15 11:07] VITALS: BP 115/88
--- NOTE | 2025-04-15 11:47 | CM ---
Patient seen at bedside
K 5.4 today, 1500 labs
plan: Home, no needs
drove self to hospital
--- NOTE | 2025-04-15 14:30 | W.DCSUMMARY ---
Discharge Summary
Discharge Data
Date of Admission: 04/12/25
Date of Discharge: 04/15/25
-
Pending Results: No
Hospital Course
65 male with a history of hypertension
Presented with shortness of breath that was worse with exertion that was associated with tachycardia on a smart device. Family doctor recommended presenting to the hospital. Was found to have elevated troponin and a BNP of 4120. Evaluated by
cardiology 2D echocardiogram completed which demonstrated LV dilated/globally hypokinetic EF of 15 to 20%. See rest of report as below. Due to low EF cardiology further recommended left heart catheterization which demonstrated nonobstructive CAD.
Please see report below. Therefore, diagnosed with nonischemic cardiomyopathy with an EF of 15 to 20% and will require repeat 2D echocardiogram within 3 months to assess recovery of ejection fraction. Cardiology then initiated metoprolol Farxiga.
Lisinopril discontinued to allow for 72-hour washout. In order to eventually start Entresto with outpatient cardiology.
Hospitalization complicated by hyperkalemia 5.4 on the day of discharge. Received Lokelma. Repeat BMP obtained
2D echocardiogram
CONCLUSIONS
1. Left ventricle: Dilated and globally hypokinetic with a visually estimated
ejection fraction of 15-20% and 20% by Noble's method of discs.
2. Right ventricle: Dilated with reduced systolic function
3. Atria: Severe left atrial dilation and moderate right atrial dilation
4. Mitral valve: Severe mitral regurgitation
5. Aortic valve: Mildly thickened and sclerotic. Mild aortic insufficiency
6. Tricuspid valve: Mild to moderate tricuspid regurgitation with moderate
pulmonary hypertension and estimated pulmonary artery systolic pressures of 48
mmHg
7. No prior echocardiogram for comparison
[facility]
CONCLUSIONS
1. Elevated right and left ventricular filling pressures
2. Dilated cardiomyopathy with global hypokinesis and visually estimated ejection fraction of 15%
3. Nonobstructive coronary artery disease
He was seen on day of discharge which was 05/12/2025. No new complaints. No acute overnight events. No acute complaints
He understands why he has to stay and await repeat BMP due to hyperkalemia this morning
NAD
Scleral Anicteric
MMM
No JVD
CTABL
RRR, S1/S2
Soft, NT, ND, BS+
Warm, Dry
AAOx3
Calm
Discharge Plan
-
Patient Disposition: Home (Routine Discharge)
Discharge Diagnosis/Procedures: Cardiac cath
HFrEF
Condition: Good
Diet: 2 Gram Sodium and Restrict fluids to 48 oz
Driving Restrictions: No driving for 24 hours
Blood Work: Called PCP for BMP prescription to obtain on April 19
Other Services: Cardiac Rehab
Specialty Instructions: Weigh Daily- Call MD for wt gain/loss 3 lbs overnight/5 lbs in 1 week
Activity Restrictions/Additional Instructions:
Presented with shortness of breath that was worse with exertion that was associated with tachycardia on a smart device. Family doctor recommended presenting to the hospital. Was found to have elevated troponin and a BNP of 4120. Evaluated by
cardiology 2D echocardiogram completed which demonstrated LV dilated/globally hypokinetic EF of 15 to 20%. See rest of report as below. Due to low EF cardiology further recommended left heart catheterization which demonstrated nonobstructive CAD.
Please see report below. Therefore, diagnosed with nonischemic cardiomyopathy with an EF of 15 to 20% and will require repeat 2D echocardiogram within 3 months to assess recovery of ejection fraction. Cardiology then initiated metoprolol Farxiga.
Lisinopril discontinued to allow for 72-hour washout. In order to eventually start Entresto with outpatient cardiology.
Hospitalization complicated by hyperkalemia 5.4 on the day of discharge. Received Lokelma. Repeat BMP obtained
2D echocardiogram
CONCLUSIONS
1. Left ventricle: Dilated and globally hypokinetic with a visually estimated
ejection fraction of 15-20% and 20% by Noble's method of discs.
2. Right ventricle: Dilated with reduced systolic function
3. Atria: Severe left atrial dilation and moderate right atrial dilation
4. Mitral valve: Severe mitral regurgitation
5. Aortic valve: Mildly thickened and sclerotic. Mild aortic insufficiency
6. Tricuspid valve: Mild to moderate tricuspid regurgitation with moderate
pulmonary hypertension and estimated pulmonary artery systolic pressures of 48
mmHg
7. No prior echocardiogram for comparison
[facility]
CONCLUSIONS
1. Elevated right and left ventricular filling pressures
2. Dilated cardiomyopathy with global hypokinesis and visually estimated ejection fraction of 15%
3. Nonobstructive coronary artery disease
Instructions: *PCP/Other [employer] Heart Failure Instructions
Stand Alone Forms: DC Instructions- Cath/EP Lab
Referrals:
Sheila Madrigal PA-C [Specified Professional Personl, Cardiology] - 04/23/25 1:20 pm
Referral Note: You have a follow up visit with Dr. Copeland's PA, Sheila Madrigal, in the [facility] office. Please call with questions.
Hermilo Suarez MD [Family Provider, Family Practice]
Additional Discharge Medication Instructions: Stop lisinopril
Start Lipitor 20 mg nightly
Continue Farxiga Lasix and metoprolol as prescribed
Prescriptions:
New
dapagliflozin propanediol 10 mg Tablet
10 mg PO DAILY Qty: 30 0RF
metoprolol succinate 25 mg Tablet Extended Release 24 Hr
12.5 mg PO BID Qty: 30 0RF
atorvastatin 20 mg Tablet
20 mg PO QPM Qty: 30 0RF
furosemide 40 mg Tablet
40 mg PO DAILY Qty: 30 0RF
Continued
amitriptyline 25 mg tablet
25 mg PO HS
Theragen Tablet
1 tab PO DAILY
aspirin 81 mg Tablet,Delayed Release (Dr/Ec)
81 mg PO DAILY
calcium polycarbophil [FiberCon] 625 mg Tablet
1,250 mg PO BID
Discontinued
lisinopril 20 mg Tablet
20 mg PO HS
Discharge Orders:
Discharge Patient (As Directed); Ordered 07/03/25
Ordered By: Amarjit Negrete
Discharge Date and Time
Print Language: ICELANDIC
[2025-04-15 15:37] VITALS: BP 105/69
[2025-04-15 17:14] LABS: Blood Urea Nitrogen 42 mg/dl (9-20); Calcium 10.2 mg/dl (8.4-10.2); Carbon Dioxide 24 mmol/L (22-30); Chloride 106 mmol/L (98-107); Estimated Creatinine Clearance 87 ml/min; Glucose 123 mg/dl (70-99); Potassium 4.4 mmol/L (3.5-5.1); Sodium 141 mmol/L (135-145); eGFR > 60.00
== END 2025-04-15 18:14 | disposition home or self-care (01) | DRG 286 ==
LOC: 4 WEST ACU 18:23
PROVIDERS: Nurse Practitioner Adult Health; Nurse Practitioner Family; Physician Assistant; ADMITTING PHYSICIAN Hospitalist; ATTENDING PHYSICIAN Hospitalist; EMERGENCY PHYSICIAN Student in an Organized Health Care Education/Training Program; FAMILY PHYSICIAN Family Medicine; OTHER PHYSICIAN Internal Medicine Interventional Cardiology
PROC: 4A023N8 Measurement of Cardiac Sampling and Pressure, Bilateral, Percutaneous Approach (ICD-10-PCS; 2025-04-13)
PROC: B2151ZZ Fluoroscopy of Left Heart using Low Osmolar Contrast (ICD-10-PCS; 2025-04-13)
PROC: B2111ZZ Fluoroscopy of Multiple Coronary Arteries using Low Osmolar Contrast (ICD-10-PCS; 2025-04-13)
DX: I11.0 Hypertensive heart disease with heart failure (principal); I50.23 Acute on chronic systolic (congestive) heart failure; G47.00 Insomnia, unspecified; I42.0 Dilated cardiomyopathy; I25.10 Atherosclerotic heart disease of native coronary artery without angina pectoris; E87.5 Hyperkalemia; Z79.82 Long term (current) use of aspirin; Z79.899 Other long term (current) drug therapy; F17.290 Nicotine dependence, other tobacco product, uncomplicated; I07.1 Rheumatic tricuspid insufficiency; I27.20 Pulmonary hypertension, unspecified; I34.0 Nonrheumatic mitral (valve) insufficiency; Z82.49 Family history of ischemic heart disease and other diseases of the circulatory system; I5A Non-ischemic myocardial injury (non-traumatic)
CPT/HCPCS: 71275; 80048; 80053; 80061; 83036; 83735; 83880; 84443; 84484; 85025; 85027; 93005; 93306; 93460; 96361; 96374; 99152; 99153; 99285; C1894; Q9967

== ENCOUNTER → 2025-05-13 08:29 | Outpatient (REF) | payer BC, SELFPAY | LOC: MRI 08:29 | PROVIDERS: ATTENDING PHYSICIAN Physician Assistant Medical; FAMILY PHYSICIAN Family Medicine | DX: I42.8 Other cardiomyopathies (principal); I50.20 Unspecified systolic (congestive) heart failure | CPT/HCPCS: 75561; 75565; A9575 ==

== ENCOUNTER 2025-05-19 21:19 | Inpatient (IN) | payer BC, SELFPAY ==
[2025-05-19 16:12] VITALS: BP 119/83
[2025-05-19 16:38] LABS: Hematocrit 46.3 % (39.0-52.0); Hemoglobin 15.2 g/dL (13.0-18.0); Mean Corp Hgb Conc. 32.8 g/dL (33.0-37.0); Mean Corpuscular Volume 90.8 fL (80.0-94.0); Nucleated Red Blood Cells % 0 % (-); Platelet Count 146 10^3/uL (130-400); Red Cell Dist. Width 13.3 % (11.5-14.5)
[2025-05-19 16:59] LABS: ALT (SGPT) 48 U/L (0-50); AST (SGOT) 32 U/L (17-59); Albumin 4.3 g/dl (3.5-5.0); Alkaline Phosphatase 73 U/L (38-126); Blood Urea Nitrogen 36 mg/dl (9-20); Calcium 9.2 mg/dl (8.4-10.2); Carbon Dioxide 26 mmol/L (22-30); Chloride 104 mmol/L (98-107); Glucose 114 mg/dl (70-99); Potassium 4.3 mmol/L (3.5-5.1); Sodium 138 mmol/L (135-145); Total Protein 6.5 g/dl (6.3-8.2); eGFR > 60.00
[2025-05-19 20:07] VITALS: BP 118/100
--- NOTE | 2025-05-19 20:13 | ED.GENMED ---
History of Present Illness
General
Chief Complaint: Breathing Problem
Source: patient and records
Exam Limitations: none
Time Seen by Provider: 05/19/25 20:06
History of Present Illness
History of Present Illness:
65yoM with a history of recently diagnosed CHF with an EF of 15-20% presenting with his for evaluation of shortness of breath. Patient was recently hospitalized from 04/12-04/15/25 for new onset CHF. He was down to 168 pounds at the time of
discharge. He was feeling well the first 2 weeks but started to have a gradual onset of dyspnea. He was up to 177 to 178 pounds at one point but was back down to 175 this morning. Patient had an episode of shortness of breath this afternoon at
which point he decided to come to the ED. He does feel his abdomen is distended. No significant cough and he denies chest pain. He follows with Dr. Mathews.
Phy Exam
General Physical Exam
General Presentation: well appearing and no apparent distress
General Skin: warm and dry
General Habitus: normal
General Mental: alert
ENT Exam
ENT Exam: normocephalic
Cardiovascular Exam
Cardiovascular Exam: regular rate/rhythm and no edema
Pulmonary Exam
Pulmonary Exam: no respiratory distress, no stridor, no wheezing and other (Rales at R lung base)
Gastrointestinal Exam
Gastrointestinal Exam: non tender, soft and other (Abdomen mildly distended. Non-tender.)
Neurological Exam
Neurological Exam: alert
[place] Coma Scale
Eye Opening: Spontaneous
Verbal Response: Oriented
Motor Response: Obeys Commands
GCS Total Score: 15
Skin Exam
Skin Exam: normal color and warm/dry
Psychiatric Exam
Psychiatric Exam: normal mood/affect
Scores
Heart Failure Risk
Heart Failure Risk Score: Not Applicable
Course
Orders/Labs/Results
Orders:
Orders
05/19/25 Breakfast
Cholesterol Lowering
At Your Request: Limited Participation
Does patient need a safe tray?: No
Cholesterol Lowering: Sodium, 2 Gram
05/19/25 16:15
EKG [Electrocardiogram (*1)] Urgent
Reason for Study: Shortness of Breath
EKG- Treatment ONCE
Chest [CR Chest - 2 Views ] Urgent
Comment:
Reason For Exam: SOB
05/19/25 16:27
Complete Blood Count/With Diff Urgent
Comprehensive Metabolic Panel Urgent
NT-proBNP Urgent
05/19/25 20:30
Cardiac Monitoring- Treatment ONCE
Furosemide [Lasix] 40 mg IV NOW STA
05/19/25 20:59
Admit/Transfer Patient As Directed
Co-Sign Provider:
Level of Care: Inpatient admission
Assign to:: Telemetry
Physician / Group: Dalia
Diagnosis: CHF exacerbation
Reason for Telemetry: Subacute Heart Failure
Date to Stop Telemetry: 05/21/25
Time to Stop Telemetry: 11:00
Reason for Hospitalization: CHF exacerbation
Expected length of stay greater than two midnights?: Yes
ELOS- Estimated Length of Stay in days: 2
I certify the patient meets the requirements for IP care: Yes
PRN Pain Medication Management As Directed
May give lesser potent ordered pain med per pt: Yes
preference::
Protocol:: Medication orders for pain may be administered in a
manner that supports deferring to patient preference
when the pt is:
- Requesting an ordered lesser potent pain medication.
Least to most potent pain medications are defined
as: acetaminophen < NSAID < tramadol < opioids
(morphine, oxycodone, hydromorphone).
- Requesting a lesser dose of the same medication IF
ORDERED.
- Requesting a less intrusive route of administration
if both routes are prescribed by the provider (PO <
IV).
05/19/25 21:00
Code Status As Directed
Resuscitation Status: Full Code
05/19/25 21:09
Carvedilol [Coreg] 6.25 mg PO NOW STA
05/19/25 22:14
Acetaminophen [Tylenol] 650 mg PO Q6HPRN PRN
Amitriptyline [Elavil] 25 mg PO HS
Docusate Sodium [Colace] 100 mg PO BIDPRN PRN CONSTIPATION
Zolpidem Tartrate [Ambien] 10 mg PO HSPRN PRN SLEEP
05/19/25 22:14
Echo 2D MMode Color/Doppler Routine
Reason for Study: heart failure
HF DIETARY CONSULT Routine
HF EDUCATOR CONSULT Routine
Comment:
Activity As Directed
Activity Level: As Tolerated
Intake/ Output As Directed
Frequency: Per unit guidelines
Patient Education As Directed
Type: CHF folder
Comment: give on admission. Document in Interdisciplinary Education record
Sleep Apnea Assessment by RN As Directed
Comment:
Physician Instructions:
Vital Signs As Directed
Frequency: Other
Additional Instructions:: Q12 or per unit guidelines if more frequent.
Weight As Directed
Frequency: Daily
Type of Scale: Standing Scale
Comment: Daily morning weight. If unable to stand, use balanced bed scale.
Weight As Directed
Frequency: Once
Type of Scale: Standing Scale
Comment: Upon Admission. If unable to stand, use balanced bed scale.
Pulse Ox/cont/shift [RESP] Routine
Quantity: 1
Special Instructions: Daily pulse oximetry at rest. If greater than 92% at rest also obtain pulse oximetry
while ambulating as tolerated.
DX Deep Vein Thrombosis Video Routine
05/20/25 06:00
Basic Metabolic Panel IN AM
Complete Blood Count/No Diff IN AM
Magnesium IN AM
05/20/25 08:00
Aspirin Low Dose EC [Aspir Low (Enteric Coated)] 81 mg PO DAILY
Carvedilol [Coreg] 6.25 mg PO BID
Dapagliflozin [Farxiga] 10 mg PO DAILY
Furosemide [Lasix] 40 mg IV BID AT 0800,1600
05/20/25 18:00
Atorvastatin [Lipitor] 20 mg PO QPM
Enoxaparin Sodium [Lovenox] 40 mg SC QPM
05/21/25 06:00
Basic Metabolic Panel IN AM
05/21/25 11:00
DC Protocol for Telemetry ONCE
05/22/25 06:00
Basic Metabolic Panel IN AM
Abnormal Lab Results
05/19/25
16:27
MCHC 32.8 L g/dL
(33.0-37.0)
MPV 12.8 H fL
(7.4-10.4)
Absolute Neuts (auto) 6.6 H 10^3/uL
(1.4-6.5)
Absolute Monos (auto) 0.7 H 10^3/uL
(0.1-0.6)
BUN 36 H mg/dl
(9-20)
Glucose 114 H mg/dl
(70-99)
05/19/25 16:27
05/19/25 16:27
Vital Signs
Initial and Last Documented VS:
Initial Vital Signs
Temp Pulse Resp BP Pulse Ox
98.6 F 97 18 119/83 98
05/19/25 16:12 05/19/25 16:12 05/19/25 16:12 05/19/25 16:12 05/19/25 16:12
Last Documented Vital Signs
Temp Pulse Resp BP Pulse Ox
97.7 F 75 18 126/92 96
05/19/25 22:25 05/19/25 22:25 05/19/25 22:25 05/19/25 22:25 05/19/25 23:12
MDM/Problems Addressed
Differential Diagnosis Includes:
65yoM here with SOB, abd distention, and weight gain. Hx of recently diagnosed CHF with EF of 15-20%. Vitals are stable. He is well-appearing in no distress. Abdomen is mildly distended and rales noted on lung exam. No pitting edema to
extremities. Differential diagnosis includes but is not limited to: CHF exacerbation, anasarca, cardiorenal syndrome
Workup initiated in triage. BNP 5700 which is increased from last month. Renal function normal. Chest x-ray shows pulmonary vascular congestion. 40 mg IV Lasix ordered and patient admitted for further management.
*Pulse Oximetry
SaO2: 98
Oxygen Mode of Delivery: Room air
Patient hypoxic: no (98%)
*EKG
Interpreted by ED Provider?: Yes
EKG Intrepretation Date: 05/19/25
Heart Rate: 96
Rate: normal
Rhythm: sinus and PVC's
[place]: normal axis
Interval: normal interval
QRS Pattern: normal QRS
Ischemia: non-specific ST changes
*Critical Care Note
Total Time (30-74mins, 75-104mins- exclusive of procedures): Not Applicable
ED Attending Note
-
Portions of this chart may have been created with voice recognition software.� Occasional wrong word or��sound alike� substitutions may have occurred due to the inherent limitations of voice recognition software.
Discharge Plan
Departure
Patient Disposition: Admit
Date of Disposition: 05/19/25
Time of Disposition: 20:31
Presentation/result/management discussed w/ accepting MD/DO: Hospitalist
Discharge Problem:
Acute exacerbation of CHF (congestive heart failure)
Interventions
Interventions:
*Risk Screen - Suicide Last Done: 05/19/25 16:12
*General Assessment Last Done: 05/19/25 16:12
*ED- Fall Risk Assessment Last Done: 05/19/25 16:12
*ED COVID-19 Vaccine History Last Done: 05/19/25 16:12
*Nursing Disposition Last Done: 05/19/25 22:14
ED- Cardiac Assessment Last Done: 05/19/25 20:40
ED- Pulmonary Assessment Last Done: 05/19/25 20:40
Discharge Date and Time
Discharge Date/Time: 05/19/25 22:14
--- NOTE | 2025-05-19 20:35 | HPS.HSE ---
Family Physician
-
Family Physician:
Chief Complaint
-
Shortness of breath
History of Present Illness
He is a 62-year-old male with past medical history significant for CHF with EF of 15 to 20%, presented to the emergency department with worsening shortness of breath.
Patient was seen in the hospital in March for acute onset of CHF. At a time he had an EF of 15 to 20%. He had further workup with cardiac cath showing nonobstructive CAD. He was diagnosed with nonischemic cardiomyopathy. Patient had a recent MRI
for follow-up. He is pending a follow-up echo. During that admission he was started on diuretics. Is CARMEN inhibitor was washed out and was supposed to start on Entresto however due to elevated potassium level Entresto was not initiated. Was
placed on [facility] for and discharged on 40 mg of Lasix.
Patient reported that he was also discharged on and has been taking Coreg 6.25 twice daily. He reports compliance with his diuretic, salt restriction and fluid restriction. He states that he was discharged at 168 pounds. Over the following 2
weeks he felt well. However in the last 2 weeks he has reported increasing episodes of orthopnea. He also reports episodes of exertional dyspnea. He says he is gained up to 175 pounds. His diuretics has been titrated between 40 and 20 daily.
Denies having any chest pain. He denies any evident cough fevers or chills. He has no lower extremity edema. Denies any lightheadedness or dizziness. He denies having palpitations. He has not had any syncopal episode.
In the emergency department patient was afebrile, blood pressure was 120/81 with a pulse of 97 and satting 98% on room air. ECG shows a normal sinus rhythm at a rate of 96 with occasional PVCs no acute ischemic changes unchanged from prior. Chest
x-ray shows cardiomegaly with pulmonary vascular congestion.
BNP increased to 5760.
CBC was unremarkable, electrolytes were normal. And creatinine without 1 and 1.1 respectively.
Medical History
Past Medical History
Past Medical History: Reports Other
Additional Past Medical History:
hypertension
insomnia
Past Surgical History: Reports Other
Additional Past Surgical History:
lipoma removed from base of neck
Social History
Tobacco: Vaping (vapes nicotine daily )
Alcohol: Occasional
Drug: None
Personal:
Living: With Family
Family History
Family History: Not pertinent
Allergies / Home Medications
Allergies reflects when Allergies were last updated in [facility]
Home Medications with original date entered in [facility]
Allergy/Medication List:
Allergies
Allergy/AdvReac Type Severity Reaction Status Date / Time
No Known Allergies Allergy Verified 04/12/25 11:29
Home Medications
amitriptyline 25 mg tablet 25 mg PO HS Mental Health/Anxiety 04/12/25
aspirin 81 mg tablet,delayed release 81 mg PO DAILY Heart Disease/Condition 04/12/25
calcium polycarbophil 625 mg tablet (FiberCon) 1,250 mg PO BID Supplement 04/12/25
therapeutic multivitamin 1 tab PO DAILY Supplement 04/12/25
atorvastatin 20 mg tablet 20 mg PO QPM #30 tabs 04/15/25
empagliflozin 10 mg tablet (Jardiance) 10 mg PO DAILY #30 tabs 04/15/25
furosemide 40 mg tablet 40 mg PO DAILY #30 tabs 04/15/25
metoprolol succinate 25 mg tablet,extended release 24 hr 12.5 mg (1/2 x 25 mg) PO BID #30 tabs 04/15/25
Review of Systems
-
Constitutional: Reports No Symptoms
EENT: Reports No Symptoms
Respiratory: Reports Trouble Breathing
Cardiac: Reports No Symptoms
Abdomen/GI: Reports No Symptoms
: Reports No Symptoms
Musculoskeletal: Reports No Symptoms
Skin: Reports No Symptoms
Neurological: Reports No Symptoms
Endocrine: Reports No Symptoms
Hematologic/Lymphatic: Reports No Symptoms
Psych: Reports No Symptoms
Physical Exam
Vital Signs
Vital Signs
Temp Pulse Resp BP Pulse Ox
98.6 F 97 18 119/83 98
05/19/25 16:12 05/19/25 16:12 05/19/25 16:12 05/19/25 16:12 05/19/25 20:14
Physical Exam
General: Well Developed, Well Nourished, No Apparent Distress, Comfortable and Conversant
HEENT: NormoCephalic, Moist mucous membranes, Atraumatic, Nose Appears Normal and Ears Appear Normal
Respiratory: Clear and Non Labored Respirations
Cardiac: S1/S2, Regular Rhythm, Tachycardia and JVD
Breast: Deferred by me
GI: Soft, Non Tender, Non Distended and Normal Bowel Sounds; No Organomegaly
Rectal: Deferred by Provider
Genito-urinary: Deferred by me
Musculoskeletal: No Clubbing, No Cyanosis and No Edema
Skin: Warm and IV/Catheter Site
Neuro: Awake, Alert, AO x 3 and Nonfocal/grossly intact
Psych: Calm and Intact Judgment/Insight
Laboratory Results
-
05/19/25 16:27
05/19/25 16:27
Laboratory Results
Total Bilirubin 1.1 mg/dl (0.2-1.3) 05/19/25 16:27
AST 32 U/L (17-59) 05/19/25 16:27
ALT 48 U/L (0-50) 05/19/25 16:27
Alkaline Phosphatase 73 U/L (38-126) 05/19/25 16:27
Data Reviewed
-
Diagnostic Radiology: Image Personally Visualized and interpreted
Medical Tests (Nuc Med, Echo, EKG etc): Image Personally Visualized and interpreted
Lab Data: Labs Reviewed by me
Old Records: Reviewed
Impression/Plan
-
IMPRESSION:
65-year-old with recent diagnosis of nonischemic cardiomyopathy with a EF of 15 to 20%, presenting with increasing orthopnea, episodes of exertional dyspnea and weight gain with presenting weight of around 10 pounds over his last discharge weight.
Overall does not appear markedly volume overloaded. He does have elevated JVD and increased vascular markings on chest x-ray. Overall picture seems to be consistent with increased cardiac filling pressures. He is hemodynamically stable but does
have diastolic hypertension with diastolic blood pressures in the 90s and low 100s. ECG is nonischemic. His BNP is elevated to 5700. The rest of his electrolytes BUN/creatinine and CBC were within the normal range.
PLAN:
CHF exacerbation -history of nonischemic cardiomyopathy with EF of 15 to 20%, no arrhythmias. Weight gain over the last 2 weeks. Orthopnea and increasing BNP.
-Admit to telemetry
-Start Lasix 40 mg IV twice daily for now
-Continue CARMEN Farxiga
-Continue Coreg 6.25 twice daily
-Patient likely will need additional cardiac remodeling agent but this was limited by hyperkalemia on his last admission *(one time k of 5.4, now 4.3)
-Repeat his echocardiogram
-Follow-up cardiac MRI
-Cardiology consultation
DVT prophylaxis�Lovenox subcu
CODE STATUS�full code
[2025-05-19] MEDS: LASIX 40 MG IV (20:41)
[2025-05-19 20:42] VITALS: BP 113/102
[2025-05-19 21:00] VITALS: BP 127/105
[2025-05-19] MEDS: COREG 6.25 MG PO (21:31)
[2025-05-19 21:49] VITALS: BMI 25.0
[2025-05-19 22:00] VITALS: BP 123/99
[2025-05-19 22:25] VITALS: BP 126/92; BMI 25.0
[2025-05-19] MEDS: COLACE 100 MG PO (22:40)
[2025-05-19] MEDS: AMBIEN 10 MG PO (22:40)
[2025-05-19] MEDS: ELAVIL 25 MG PO (22:40)
[2025-05-19] MEDS: LIPITOR 20 MG PO (22:48)
[2025-05-20] VITALS (9 sets, daily range): BP systolic 96–144; BP diastolic 71–117; BMI 24.7
[2025-05-20] MEDS: COREG 6.25 MG PO ×2 (07:51→19:35)
[2025-05-20] MEDS: FARXIGA 10 MG PO (07:51)
[2025-05-20] MEDS: ASPIR LOW (ENTERIC COATED) 81 MG PO (07:52)
[2025-05-20 08:13] LABS: Hematocrit 43.5 % (39.0-52.0); Hemoglobin 14.2 g/dL (13.0-18.0); Mean Corp Hgb Conc. 32.6 g/dL (33.0-37.0); Mean Corpuscular Volume 89.0 fL (80.0-94.0); Platelet Count 122 10^3/uL (130-400); Red Cell Dist. Width 13.3 % (11.5-14.5)
--- NOTE | 2025-05-20 08:36 | W.PN.HOSP.TC ---
Today's Communication/Plan
-
see A/P
Assessment / Plan
Assessment / Plan
HPI: 65-year-old with recent diagnosis of nonischemic cardiomyopathy with an EF of 15 to 20%, p/w exertional dyspnea and weight gain (10 pounds). He reports compliance with his diuretic, salt restriction and fluid restriction.
A/P:
# Acute on chronic systolic HF
# nonischemic cardiomyopathy with EF 15 to 20%
Follow repeat echo report this admission
Check Abd US for distension, consider paracentesis if ascites present
Cont IV Lasix 40 mg twice daily, monitor daily weight
Continue [employer] Coreg and Farxiga
Consider adding ACEI/ARB this admission with resolved recent hyperkalemia- defer to card
Cardiology consultation
DVT prophylaxis�Lovenox subcu
CODE STATUS�full code
DW RN
total time 51 min
Anticipated Discharge: 24 - 48 hours
Subjective/Interval History
-
Date of Service: May 20, 2025
Objective Data
-
Labs:
Laboratory Results
05/20/25
07:02
WBC 7.1
Hgb 14.2
Hct 43.5
Plt Count 122 L
Sodium Pending
Potassium Pending
Chloride Pending
Carbon Dioxide Pending
BUN Pending
Creatinine Pending
Glucose Pending
Calcium Pending
Vital Signs:
Vital Signs
Temp Pulse Resp BP Pulse Ox
36.5 C 88 16 117/70 98
05/20/25 07:48 05/20/25 07:51 05/20/25 07:48 05/20/25 07:51 05/20/25 07:48
I&O
05/19/25 05/20/25 05/21/25
06:59 06:59 06:59
Output Total 725 / 725
Balance -255 / -463
Review of Systems
-
All other systems: Reviewed and negative
Respiratory: Reports Trouble Breathing (improved )
Abdomen/GI: Reports Other (abdomen distension )
Physical Exam
-
General: Well Developed, Well Nourished, No Apparent Distress, Comfortable and Conversant; Negative Respiratory Distress
HEENT: Normocephalic, Atraumatic, Nose Appears Normal and Ears Appear Normal; Negative Oxygen
Respiratory: Clear to Auscultation and Non Labored Respirations; Negative Accessory Resp Muscle Use
Cardiac: Regular Rhythm and S1/S2
GI: Soft, Nontender, Normal Bowel Sounds and Distended
Skin: Warm and Dry
Neuro: Awake, Alert, Oriented, AO x 3 and Nonfocal/Grossly Intact
Psych: Calm and Intact Judgement/Insight
Data Reviewed
-
Labs: Labs Reviewed by me
[2025-05-20 08:40] LABS: Blood Urea Nitrogen 33 mg/dl (9-20); Calcium 9.1 mg/dl (8.4-10.2); Carbon Dioxide 22 mmol/L (22-30); Chloride 107 mmol/L (98-107); Estimated Creatinine Clearance 87 ml/min; Glucose 77 mg/dl (70-99); Magnesium 2.0 mg/dl (1.6-2.3); Potassium 3.8 mmol/L (3.5-5.1); Sodium 140 mmol/L (135-145); eGFR > 60.00
[2025-05-20] MEDS: LASIX 40 MG IV ×2 (08:47→16:29)
--- NOTE | 2025-05-20 09:53 | CON.CAR ---
Addendum entered and electronically signed by Alma Mathews MD 05/20/25 12:39:
I saw and examined the patient.
The Recreation Teacher's note was reviewed and I agree with the note.
His is at the bedside.
Comment: General: Well developed, well nourished in NAD.
Neck: Positive JVD positive HJR
Heart: Laterally displaced PMI, RRR, 3/6 apical holosystolic murmur. RV lift. Positive S3
Lungs: Decreased breath sounds at the base
Abdomen: Distended with hepatomegaly
Extremities: No clubbing, cyanosis or edema bilaterally.
Neuro: Grossly nonfocal, awake, alert and oriented x3.
He presented with another episode of acute on chronic heart failure with reduced ejection fraction. Reassessment of echocardiogram reveals ejection fraction 10 to 15% with severe mitral regurgitation. Unclear etiology of nonischemic
cardiomyopathy. No clear family history of cardiomyopathy. Mitral valve may be secondary to LV dilation more so than the cause of his cardiomyopathy but still possible. We discussed at great length. He had significant decompensation regarding
admission and diuresis. Likely has quite a ways to go with diuresis and decompression. Discussed this at great length. We discussed the pathophysiology of heart failure with reduced ejection fraction. We discussed medications, prognosis and
treatment plans in addition.
He is having frequent PVCs and short runs of nonsustained VT on monitoring. He and his describe dizziness on way to the hospital that is suspected to be secondary to symptomatic nonsustained ventricular tachycardia. Also in the hospital he
continues to feel fluttering consistent with symptomatic ventricular tachycardia.
- Continue diuresis
- Continue beta-jose carlos and titrate as able
- Add Entresto and uptitrate as able. Previously increased potassium. Potassium is stable. Follow.
- Continue SGLT2 inhibitor
- Eventually could consider MRA pending potassium
- In the interim we will look into the cost of Vericiguat
Although he is only about 30 days since starting treatment for heart failure with reduced ejection fraction he likely is having symptomatic nonsustained ventricular tachycardia based on dizziness and also palpitations. We discussed this at great
length and suspect that he has increased risk of sudden cardiac . We discussed the risks and benefits of dual-chamber ICD. All questions answered. They likely will be agreeable to proceed. Will continue ongoing discussion.
- If agreeable once medications are uptitrate in patient is euvolemic d (likely Saturday) would proceed with dual-chamber ICD and right heart catheterization. Prior right heart catheterization reviewed
Given young age and severity of heart failure/cardiomyopathy on discharge I discussed with him consultation/evaluation at [facility] for comanagement.
In addition I have reviewed all recent blood work and testing.
Abdominal ultrasound completed which I reviewed also from 05/20/2025: Small volume ascites is seen in the right upper and left upper quadrants.
Bilateral pleural effusions are noted.
Cardiac MRI 05/13/2025: Severely dilated LV with diffusely diminished contractility and EF 14%. There is also diminished contractility of the RV. No significant wall thickening, so infiltrative process of myocardium would be unlikely. Findings likely
represent nonischemic cardiomyopathy with late gadolinium enhancement a relatively poor prognostic indicator. Moderate MR. Mild TR.
Original Note:
Consultation
Consultation Request
Date/Time Consultation Requested: 05/20/2025
Date/Time Consultation Performed: 05/20/2025
Requesting Provider: Dr. Gutierrez
Performing Provider: Rhonda Deal PA-C for Dr. Alma Mathews
Reason for Consultation: CHF
Medical History
-
History of Present Illness:
HPI: Andrea is a 65 year old male with PMH of chronic HFrEF, NICM, nonobstructive CAD, HTN, preDM, and severe MR. He had recent admission at [facility] 04/12/2025 to 04/15/2025 with new heart failure and CM. EF noted to be 15% during that admission. He had
cardiac catheterization which revealed nonobstructive CAD and was started on medical therapy lasix, coreg, and jardiance. He had been started on CARMEN, but this was held due to hyperkalemia and plan was to consider starting entresto when seen in
follow up. He was doing well when seen in follow up, but appeared somewhat dry and lasix dose was reduced to 20mg daily as OP 04/23. He continued to feel well, but approximately 1 week later started feeling as though he was worsening with increased
SOB. His lasix dose was slowly uptitrated back to 40 mg daily, but SOB and weigh gain continued. He had episode of severe SOB yesterday, 05/19 which prompted ER evaluation. In ER, found to be in acute heart failure with proBNP elevated at 5760 and w/
pulmonary edema on chest xray. He was admitted and started on IV lasix. With IV lasix, weight has trended down and breathing improving.
PMH:
Chronic HFrEF
Nonischemic cardiomyopathy
Nonobstructive CAD by cardiac cath 04/13/2025
h/o smoking, now vaping
HTN
Prediabetes
Severe MR by echo 04/13/2025
Past Medical History
Past Medical History: Other (In HPI)
Past Surgical History: Other
Social History
Tobacco: Vaping
Alcohol: Occasional
Drug: None
Personal:
Living: With Family
Family History
Family History: CAD (father with CAD in his 80s)
Allergies / Home Medications
Allergy/AdvReac Type Severity Reaction Status Date / Time
No Known Allergies Allergy Verified 04/12/25 11:29
�Medication �Instructions �Recorded �Confirmed �Type
amitriptyline 25 mg tablet 25 mg PO HS Mental Health/Anxiety 04/12/25 05/19/25 History
aspirin 81 mg tablet,delayed 81 mg PO DAILY Heart 04/12/25 05/19/25 History
release Disease/Condition
calcium polycarbophil 625 mg 1,250 mg PO BID Supplement 04/12/25 05/19/25 History
tablet (FiberCon)
therapeutic multivitamin 1 tab PO DAILY Supplement 04/12/25 05/19/25 History
atorvastatin 20 mg tablet 20 mg PO QPM #30 tabs 04/15/25 05/19/25 Rx
empagliflozin 10 mg tablet 10 mg PO DAILY #30 tabs 04/15/25 05/19/25 Rx
(Jardiance)
furosemide 40 mg tablet 40 mg PO DAILY #30 tabs 04/15/25 05/19/25 Rx
carvedilol 6.25 mg tablet (Coreg) 6.25 mg PO BID Heart Failure 05/19/25 05/19/25 History
docusate sodium 100 mg capsule 100 mg PO BIDPRN PRN CONSTIPATION 05/19/25 05/19/25 History
(Colace)
phenolphthalein 90 mg tablet 90 mg PO DAILYPRN PRN CONSTIPATION 05/19/25 05/19/25 History
zolpidem 10 mg tablet (Ambien) 10 mg PO HSPRN PRN SLEEP 05/19/25 05/19/25 History
Review of Systems
-
History Source: Patient
All other systems: Negative unless noted
Physical Exam
Vital Signs
Temp Pulse Resp BP Pulse Ox
97.7 F 87 16 117/84 98
05/20/25 07:48 05/20/25 08:47 05/20/25 07:48 05/20/25 08:47 05/20/25 09:20
Lab Results
05/20/25 07:02
05/20/25 07:02
Anp-L-Ehjvxcjnamf Pept 5760 pg/ml 05/19/25 16:27
Physical Exam
General: Well Developed, Well Nourished and No Apparent Distress
HEENT: Normocephalic and Moist Mucous Membranes
Respiratory: Clear and Non Labored Respirations
Cardiac: Regular Rhythm and Murmur
Musculoskeletal: No Clubbing, No Cyanosis and No Edema
Skin: Warm and Dry
Neuro: AO x 3 and Nonfocal/Grossly Intact
Psych: Calm
Impression / Plan
-
PCP: Dr. Suarez
Certified Nurse: Dr. Carlo Sangrigoli
Impression:
Presented with SOB, weight gain
Acute on chronic HFrEF
Nonischemic cardiomyopathy, EF 10-15%
Nonobstructive CAD by cardiac cath 04/13/2025
h/o smoking, now vaping
HTN
Prediabetes
Severe MR by echo 04/13/2025
LHC 04/13/2025: Elevated right and left ventricular filling pressures. Dilated CM with global hypokinesis and EF 15%. Nonobstructive CAD.
Cardiac MRI 05/13/2025: Severely dilated LV with diffusely diminished contractility and EF 14%. There is also diminished contractility of the RV. No significant wall thickening, so infiltrative process of myocardium would be unlikely. Findings likely
represent nonischemic cardiomyopathy with late gadolinium enhancement a relatively poor prognostic indicator. Moderate MR. Mild TR.
Echo 04/13/2025: EF 15 to 20%, RV dilated with reduced systolic function, severe LA dilatation and moderate RA dilatation, severe MR, mild aortic insufficiency, mild to moderate TR with PAP 48 mmHg
Echo 05/20/2025: EF 10-15%, global hypokinesis, severe LV dilation, mild AR, severe MR, mild TR, estimated PAP 41 mmHg
Plan:
-Presented with worsening SOB, weight gain. Admitted with acute HFrEF.
-Diuresing with IV lasix 40mg BID. Weight down 2lbs overnight, down to 172 lbs on 05/19.
-Creat stable at 0.9. Continue to follow.
-Known NICM with EF 10-15% by echo 05/20. Continues on medical therapy with coreg, Farxiga.
-Previously unable to start Entresto due to hyperkalemia. K normalized this admission. Will start.
-Will also have CM assess the cost of Verquvo and consider starting.
-Cardiac MRI 05/13 without scar or infiltrative process of myocardium noted.
-Abd US as noted w/ small volume ascites.
-Nonobstructive CAD by cath 04/13. Continue aspirin 81mg daily, lipitor 20mg daily.
-EKG reviewed, SR with PVCs. Frequent PVCs and brief runs of NSVT noted on telemetry.
-Patient does note occasional lightheadedness/near syncope. With EF 10-15%, dizziness and NSVT, consider ICD implant prior to discharge.
-Consider eventual referral to [place] for transplant evaluation.
HPI: Andrea is a 65 year old male with PMH of chronic HFrEF, NICM, nonobstructive CAD, HTN, preDM, and severe MR. He had recent admission at [facility] 04/12/2025 to 04/15/2025 with new heart failure and CM. EF noted to be 15% during that admission. He had
cardiac catheterization which revealed nonobstructive CAD and was started on medical therapy lasix, coreg, and jardiance. He had been started on CARMEN, but this was held due to hyperkalemia and plan was to consider starting entresto when seen in
follow up. He was doing well when seen in follow up, but appeared somewhat dry and lasix dose was reduced to 20mg daily as OP 04/23. He continued to feel well, but approximately 1 week later started feeling as though he was worsening with increased
SOB. His lasix dose was slowly uptitrated back to 40 mg daily, but SOB and weigh gain continued. He had episode of severe SOB yesterday, 05/19 which prompted ER evaluation. In ER, found to be in acute heart failure with proBNP elevated at 5760 and w/
pulmonary edema on chest xray. He was admitted and started on IV lasix. With IV lasix, weight has trended down and breathing improving.
Data Reviewed
-
EKG: Tracing Personally Visualized and interpreted
Radiology: Report Reviewed by me
Ultrasound: Report Reviewed by me
Labs: Labs Reviewed by me
Old Records: Reviewed
--- NOTE | 2025-05-20 14:33 | TRANSFER ---
Patient tx to IVU. Report given to Enedelia. Plan of care ongoing.
--- NOTE | 2025-05-20 15:08 | PTCARENOTE ---
Receive pt from [facility]. Pt ambulatory. director banking shows NSR w/ BBB, PAC's and multifocal PVC'S. VSS. Oriented pt to IVU. Pt states that he is chest pain free. Will monitor.
--- NOTE | 2025-05-20 15:22 | CM ---
Chart reviewed. Patient is independent of ADLS, lives with his in a 2 STH, 2 MERLIN and also a ramp access around back. Plan is for the patient to return home. CM to follow
--- NOTE | 2025-05-20 15:23 | CM ---
Pricing on Verquovo 2.5mg daily through the patients prescription plan is $200 for a 30 day supply and $400 through [facility] home delivery 90 day supply. Verquovo has a $10 copay card the patient qualifies for, I explained it to the patient and
placed the coupon in the patient's red discharge folder.
[2025-05-20] MEDS: LIPITOR 20 MG PO (18:22)
[2025-05-20] MEDS: LOVENOX 40 MG SC (18:36)
[2025-05-20] MEDS: ENTRESTO 24 MG/26 MG 1 TAB PO (19:34)
[2025-05-20] MEDS: AMBIEN 10 MG PO (22:25)
[2025-05-20] MEDS: ELAVIL 25 MG PO (22:25)
[2025-05-21] VITALS (13 sets, daily range): BP systolic 84–111; BP diastolic 67–98; BMI 24.1
--- NOTE | 2025-05-21 02:52 | PTCARENOTE ---
Assumed care on pt at 1900, aaox3, denies CP, SOB, dizziness, N&V. Ambulatory in room and hallway, steady gait. SR w/ BBB and multifocal PVC'S on the tele monitor. HR 60's. Call choudhury within reach, POC ongoing.
[2025-05-21 05:25] LABS: Hematocrit 45.7 % (39.0-52.0); Hemoglobin 15.1 g/dL (13.0-18.0); Mean Corp Hgb Conc. 33.0 g/dL (33.0-37.0); Mean Corpuscular Volume 87.7 fL (80.0-94.0); Platelet Count 123 10^3/uL (130-400); Red Cell Dist. Width 13.2 % (11.5-14.5)
[2025-05-21 05:54] LABS: Blood Urea Nitrogen 31 mg/dl (9-20); Calcium 9.1 mg/dl (8.4-10.2); Carbon Dioxide 27 mmol/L (22-30); Chloride 105 mmol/L (98-107); Estimated Creatinine Clearance 98 ml/min; Glucose 87 mg/dl (70-99); Magnesium 2.1 mg/dl (1.6-2.3); Potassium 3.6 mmol/L (3.5-5.1); Sodium 141 mmol/L (135-145); eGFR > 60.00
--- NOTE | 2025-05-21 07:18 | W.PN.CARDCBS ---
Addendum entered and electronically signed by Alma Mathews MD 05/21/25 11:24:
I saw and examined the patient.
The Cylinder Sander Operator's note was reviewed and I agree with the note.
His is at the bedside.
Comment: General: Well developed, well nourished in NAD.
Neck: Positive JVD positive HJR
Heart: Laterally displaced PMI, RRR, 3/6 apical holosystolic murmur. RV lift. Positive S3
Lungs: Decreased breath sounds at the base
Abdomen: Distended with hepatomegaly
Extremities: No clubbing, cyanosis or edema bilaterally.
Neuro: Grossly nonfocal, awake, alert and oriented x3.
He presented with another episode of acute on chronic heart failure with reduced ejection fraction. Reassessment of echocardiogram reveals ejection fraction 10 to 15% with severe mitral regurgitation. Unclear etiology of nonischemic
cardiomyopathy. No clear family history of cardiomyopathy. Mitral valve may be secondary to LV dilation more so than the cause of his cardiomyopathy but still possible.
Dizziness again overnight which was short-lived, brief. He is having frequent PVCs and short runs of nonsustained VT on monitoring. He and his describe dizziness on way to the hospital that is suspected to be secondary to symptomatic
nonsustained ventricular tachycardia. Also in the hospital he continues to feel fluttering consistent with symptomatic nonsustained ventricular tachycardia. He has diuresed well overnight. He feels less abdominal bloating. He feels like he
finally had a good night sleep.
-Continue diuresis but decrease Lasix to 40 mg IV daily and hold a.m. dose until seen
- Continue beta-jose carlos and titrate as able
- He is tolerating addition of Entresto and uptitrate as able as outpatient. Previously increased potassium. Potassium is stable/low.
- Replete potassium
- Continue SGLT2 inhibitor
- Eventually could consider MRA as long as potassium remains stable
- Cost of Vericiguat $10 and acceptable. Likely will start as an outpatient once we are sure blood pressure tolerating guideline directed medical therapy
- Plan for ICD on Saturday given continued PVCs and nonsustained VT that appears to be intermittently symptomatic. They are agreeable to proceed and we discussed device and procedure at great length. At that time patient will also undergo right
heart catheterization to reassess hemodynamics. He remains [place] [employer] class II-III. Heart failure with severely reduced ejection fraction
Given young age and severity of heart failure/cardiomyopathy on discharge I discussed with him consultation/evaluation at [facility] for comanagement. I have reached out to Dr. Oli Springer at [facility] and their
office will give him a call to set up follow-up. Discussed with patient and his .
Of note cardiac MRI 05/13/2025: Severely dilated LV with diffusely diminished contractility and EF 14%. There is also diminished contractility of the RV. No significant wall thickening, so infiltrative process of myocardium would be unlikely.
Findings likely represent nonischemic cardiomyopathy with late gadolinium enhancement a relatively poor prognostic indicator. Moderate MR. Mild TR.
Original Note:
Today's Communication / Plan
-
Continue diuresis, likely can transition to PO lasix in the next 24 hours
Uptitrate GDMT for CM with Entresto, Coreg, and Farxiga.
Plan to add Verquvo as OP.
Tentativley for ICD and RHC Saturday, 05/24.
Impression / Plan
-
PCP: Dr. Suarez
Datastage Developer: Dr. Carlo Mathews
Impression:
Presented with SOB, weight gain
Acute on chronic HFrEF
Nonischemic cardiomyopathy, EF 10-15%
Nonobstructive CAD by cardiac cath 04/13/2025
h/o smoking, now vaping
HTN
Prediabetes
Severe MR by echo 04/13/2025
LHC 04/13/2025: Elevated right and left ventricular filling pressures. Dilated CM with global hypokinesis and EF 15%. Nonobstructive CAD.
Cardiac MRI 05/13/2025: Severely dilated LV with diffusely diminished contractility and EF 14%. There is also diminished contractility of the RV. No significant wall thickening, so infiltrative process of myocardium would be unlikely. Findings likely
represent nonischemic cardiomyopathy with late gadolinium enhancement a relatively poor prognostic indicator. Moderate MR. Mild TR.
Echo 04/13/2025: EF 15 to 20%, RV dilated with reduced systolic function, severe LA dilatation and moderate RA dilatation, severe MR, mild aortic insufficiency, mild to moderate TR with PAP 48 mmHg
Echo 05/20/2025: EF 10-15%, global hypokinesis, severe LV dilation, mild AR, severe MR, mild TR, estimated PAP 41 mmHg
Plan:
-Presented with worsening SOB, weight gain. Admitted with acute HFrEF, known CM.
-Diuresing with IV lasix 40mg BID. Weight down another 5lbs, down to 167 lbs on 05/21.
-Creat stable at 0.8. Continue to follow.
-Known NICM with EF 10-15% by echo 05/20. Continues on medical therapy with coreg, Farxiga, and new to Entresto this admission.
-CM also assessed cost of Verquvo. Patient qualifies for copay card and is agreeable to start. Will plan to start as OP as not on formulary here.
-Cardiac MRI 05/13 without scar or infiltrative process of myocardium noted.
-Abd US 05/20 as noted w/ small volume ascites.
-Nonobstructive CAD by cath 04/13. Continue aspirin 81mg daily, lipitor 20mg daily.
-Frequent PVCs and brief runs of NSVT noted on telemetry. Occasional dizziness/lightheadedness w/ this. With EF 10-15%, dizziness and NSVT, consider ICD implant prior to discharge. Tentatively for Saturday, 05/24
-Consider eventual referral to [place] for transplant evaluation.
HPI: Andrea is a 65 year old male with PMH of chronic HFrEF, NICM, nonobstructive CAD, HTN, preDM, and severe MR. He had recent admission at [facility] 04/12/2025 to 04/15/2025 with new heart failure and CM. EF noted to be 15% during that admission. He had
cardiac catheterization which revealed nonobstructive CAD and was started on medical therapy lasix, coreg, and jardiance. He had been started on CARMEN, but this was held due to hyperkalemia and plan was to consider starting entresto when seen in
follow up. He was doing well when seen in follow up, but appeared somewhat dry and lasix dose was reduced to 20mg daily as OP 04/23. He continued to feel well, but approximately 1 week later started feeling as though he was worsening with increased
SOB. His lasix dose was slowly uptitrated back to 40 mg daily, but SOB and weigh gain continued. He had episode of severe SOB yesterday, 05/19 which prompted ER evaluation. In ER, found to be in acute heart failure with proBNP elevated at 5760 and w/
pulmonary edema on chest xray. He was admitted and started on IV lasix. With IV lasix, weight has trended down and breathing improving.
Progress Note - Datastage Developer
Subjective
Date of Service: May 21, 2025
Feeling better today. No SOB.
Objective
Labs:
05/21/25 05:13
05/21/25 05:13
Labs
Hgb 15.1 g/dL (13.0-18.0) 05/21/25 05:13
Hct 45.7 % (39.0-52.0) 05/21/25 05:13
Plt Count 123 10^3/uL (130-400) L 05/21/25 05:13
Sodium 141 mmol/L (135-145) 05/21/25 05:13
Potassium 3.6 mmol/L (3.5-5.1) 05/21/25 05:13
BUN 31 mg/dl (9-20) H 05/21/25 05:13
Creatinine 0.8 mg/dL (0.7-1.3) 05/21/25 05:13
Glucose 87 mg/dl (70-99) 05/21/25 05:13
Vital Signs and I&O:
Vital Signs
Temp Pulse Resp BP Pulse Ox
98.0 F 67 20 94/71 96
05/21/25 05:15 05/21/25 05:30 05/21/25 05:15 05/21/25 05:04 05/21/25 05:15
Vital Signs
Temp Pulse Resp BP Pulse Ox
98.0 F 67 20 94/71 96
05/21/25 05:15 05/21/25 05:30 05/21/25 05:15 05/21/25 05:04 05/21/25 05:15
Intake & Output
05/19/25 05/20/25 05/21/25 05/22/25
06:59 06:59 06:59 06:59
Intake Total 240 / 240
Output Total 725 / 725 1800 / 1800
Balance -725 / -725 -1560 / -1560
Physical Exam
Physical Exam
GEN: No distress, awake, alert, oriented x3
HEENT: supple, anicteric, mmm
LUNGS: CTA b/l, no wheezes/rales
CV: Reg, S1/S2, 2/6 syst murmur
EXT: No clubbing, cyanosis, or edema
NEURO: Gross non-focal
SKIN: Warm, dry, no rash
--- NOTE | 2025-05-21 09:15 | W.PN.HOSP.TC ---
Today's Communication/Plan
-
for ICD Saturday
diuresis per cards
Assessment / Plan
Assessment / Plan
HPI: 65-year-old with recent diagnosis of nonischemic cardiomyopathy with an EF of 15 to 20%, p/w exertional dyspnea and weight gain (10 pounds). He reports compliance with his diuretic, salt restriction and fluid restriction.
Acute on chronic systolic HF--nonischemic cardiomyopathy with EF 15 to 20%--repeat ECHO 10-15%--diuresis per cards--IV BID--entresto added per pt--cont coreg/Farxiga--apprec cards--for ICD Saturday
hypokalemia--replete
DVT proph�Lovenox
CODE STATUS�full code
Anticipated Discharge: > 48 hours
Subjective/Interval History
-
Date of Service: May 21, 2025
pt feels fine
Objective Data
-
Labs:
Laboratory Results
05/21/25
05:13
WBC 7.2
Hgb 15.1
Hct 45.7
Plt Count 123 L
Sodium 141
Potassium 3.6
Chloride 105
Carbon Dioxide 27
BUN 31 H
Creatinine 0.8
Glucose 87
Calcium 9.1
Vital Signs:
max temp for 24 hours
weight change since admission
05/19/25
22:25 05/20/25
19:33 05/21/25
05:16
Temp 98.3 F
Actual Weight 79.152 kg 76.2 kg
Vital Signs
Temp Pulse Resp BP Pulse Ox
98.0 F 67 20 94/71 96
05/21/25 05:15 05/21/25 05:30 05/21/25 05:15 05/21/25 05:04 05/21/25 05:15
I&O
05/20/25 05/21/25 05/22/25
06:59 06:59 06:59
Intake Total 240 / 240
Output Total 725 / 725 1800 / 1800
Balance -725 / -725 -1560 / -1560
Review of Systems
-
All other systems: Reviewed and negative
Physical Exam
-
General: Well Developed, Well Nourished and No Apparent Distress
HEENT: Normocephalic and Atraumatic
Respiratory: Clear to Auscultation; Negative Wheezes, Rales, Rhonchi or Crackles
Cardiac: Regular Rhythm, S1/S2 and Bradycardic
GI: Soft, Nontender, Nondistended and Normal Bowel Sounds
Musculoskeletal: No Clubbing, No Cyanosis and No Edema
Neuro: Awake and Alert
Psych: Calm
[2025-05-21] MEDS: ENTRESTO 24 MG/26 MG 1 TAB PO (09:42)
[2025-05-21] MEDS: LASIX 40 MG IV (09:42)
[2025-05-21] MEDS: ASPIR LOW (ENTERIC COATED) 81 MG PO (09:42)
[2025-05-21] MEDS: FARXIGA 10 MG PO (09:43)
[2025-05-21] MEDS: KCL 40 MEQ PO (09:43)
[2025-05-21] MEDS: COREG 6.25 MG PO (09:43)
[2025-05-21] MEDS: LASIX IV (09:47)
--- NOTE | 2025-05-21 10:43 | PTCARENOTE ---
Discussed the pathophysiology and importance of taking both aspirin and lovenox. Encouraged questions. Will monitor.
--- NOTE | 2025-05-21 16:05 | CM ---
Chart reviewed. Patient is independent of ADLS, lives with his in a 2 S[address], 2 MERLIN and a ramp around the back, 0 DME. Plan is for the patient to return home. CM to follow
[2025-05-21] MEDS: LIPITOR 20 MG PO (17:47)
[2025-05-21] MEDS: LOVENOX 40 MG SC (17:47)
[2025-05-21] MEDS: COREG PO (20:36)
[2025-05-21] MEDS: ENTRESTO 24 MG/26 MG PO (20:45)
--- NOTE | 2025-05-21 21:08 | PTCARENOTE ---
Received pt at change of shift resting in bed. pt ambulating in hallway. SR on tele, HR in the 80's. pt denies any CP or SOB. BP 98/82 on the right arm and 96/82 on left arm. Pamella Rivero NP made aware. Instructed RN to hold Entresto. Coreg held
per parameters. pt educated to call RN w/ any questions/concerns. Call choudhury within reach.
[2025-05-21] MEDS: ELAVIL 25 MG PO (22:48)
[2025-05-21] MEDS: AMBIEN 10 MG PO (22:48)
[2025-05-22] VITALS (7 sets, daily range): BP systolic 86–103; BP diastolic 65–83; BMI 24.2
[2025-05-22 04:46] LABS: Hematocrit 46.6 % (39.0-52.0); Hemoglobin 15.2 g/dL (13.0-18.0); Mean Corp Hgb Conc. 32.6 g/dL (33.0-37.0); Mean Corpuscular Volume 89.4 fL (80.0-94.0); Platelet Count 131 10^3/uL (130-400); Red Cell Dist. Width 13.1 % (11.5-14.5)
[2025-05-22 05:07] LABS: Blood Urea Nitrogen 26 mg/dl (9-20); Calcium 9.2 mg/dl (8.4-10.2); Carbon Dioxide 30 mmol/L (22-30); Chloride 104 mmol/L (98-107); Estimated Creatinine Clearance 87 ml/min; Glucose 93 mg/dl (70-99); Magnesium 2.1 mg/dl (1.6-2.3); Potassium 4.1 mmol/L (3.5-5.1); Sodium 139 mmol/L (135-145); eGFR > 60.00
[2025-05-22] MEDS: COREG 6.25 MG PO ×2 (08:28→19:52)
[2025-05-22] MEDS: ASPIR LOW (ENTERIC COATED) 81 MG PO (08:28)
[2025-05-22] MEDS: FARXIGA 10 MG PO (08:28)
[2025-05-22] MEDS: ENTRESTO 24 MG/26 MG 1 TAB PO ×2 (08:29→19:52)
[2025-05-22] MEDS: COLACE 100 MG PO (08:35)
--- NOTE | 2025-05-22 08:48 | W.PN.HOSP.TC ---
Today's Communication/Plan
-
Added miralax as requested.
Assessment / Plan
Assessment / Plan
65-year-old with recent diagnosis of nonischemic cardiomyopathy with an EF of 15 to 20%, p/w exertional dyspnea and weight gain (10 pounds).
He reported compliance with his diuretic, salt restriction and fluid restriction.
1. Acute on chronic systolic HF with nonischemic cardiomyopathy with EF 15 to 20
repeat ECHO 10-15%
diuresis per cards (see their daily note):
'-Continue diuresis but decrease Lasix to 40 mg IV daily and hold a.m. dose until seen
- Continue beta-jose carlos and titrate as able
- He is tolerating addition of Entresto and uptitrate as able as outpatient. Previously increased potassium. Potassium is stable/low.
- Replete potassium
- Continue SGLT2 inhibitor
- Eventually could consider MRA as long as potassium remains stable
- Cost of Vericiguat $10 and acceptable. Likely will start as an outpatient once we are sure blood pressure tolerating guideline directed medical therapy
Plan for ICD on Saturday given continued PVCs and nonsustained VT that appears to be intermittently symptomatic.
They are agreeable to proceed and we discussed device and procedure at great length.
At that time patient will also undergo right heart catheterization to reassess hemodynamics.
He remains [place] Heart Association class II-III. Heart failure with severely reduced ejection fraction'
entresto added per pt--cont coreg/Farxiga--apprec cards--for ICD Saturday
2. hypokalemia and in process of diuresis
See above
K today 4.1
Check k daily
Replete K as needed
3. Constipation - has happened in past hospitalization
Requested miralax
Miralax added
DVT proph�Lovenox
CODE STATUS�full code
Anticipated Discharge: > 48 hours
Subjective/Interval History
-
Date of Service: May 22, 2025
Feel well. No new issues.
Objective Data
-
Labs:
Laboratory Results
05/22/25
04:28
WBC 7.8
Hgb 15.2
Hct 46.6
Plt Count 131
Sodium 139
Potassium 4.1
Chloride 104
Carbon Dioxide 30
BUN 26 H
Creatinine 0.9
Glucose 93
Calcium 9.2
Vital Signs:
Vital Signs
Temp Pulse Resp BP Pulse Ox
97.5 F 86 18 97/83 98
05/22/25 07:59 05/22/25 08:28 05/22/25 08:10 05/22/25 08:28 05/22/25 08:10
I&O
05/21/25 05/22/25 05/23/25
06:59 06:59 06:59
Intake Total 240 / 240 960 / 960
Output Total 1800 / 1800 1525 / 1525
Balance -1560 / -1560 -565 / -565
Review of Systems
-
History Source: Patient
All other systems: Reviewed and negative
Physical Exam
-
General: Well Developed, Well Nourished, No Apparent Distress, Comfortable and Conversant
HEENT: Normocephalic, Atraumatic, Nose Appears Normal and Ears Appear Normal
Respiratory: Clear to Auscultation
Cardiac: Regular Rhythm and S1/S2
GI: Soft, Nontender and Nondistended
Musculoskeletal: No Clubbing, No Cyanosis and No Edema
Skin: Warm and Dry
Neuro: Awake, Alert, Oriented and AO x 3
Psych: Calm
Data Reviewed
-
Labs: Labs Reviewed by me
--- NOTE | 2025-05-22 16:00 | W.PN.CARDCBS ---
Today's Communication / Plan
-
Hopefully he will continue to tolerate low-dose guideline directed medical therapy for heart failure with reduced ejection fraction
Continue to hold Lasix and reassess in the morning
Continue to monitor telemetry
ICD on Saturday
PAT, PVCs and NSVT discussed
Impression / Plan
-
PCP: Dr. Suarez
Hat Finisher: Dr. Carlo Mathews
Impression:
Presented with SOB, weight gain
Acute on chronic HFrEF
Nonischemic cardiomyopathy, EF 10-15%
Nonobstructive CAD by cardiac cath 04/13/2025
h/o smoking, now vaping
HTN
Prediabetes
Severe MR by echo 04/13/2025
LHC 04/13/2025: Elevated right and left ventricular filling pressures. Dilated CM with global hypokinesis and EF 15%. Nonobstructive CAD.
Cardiac MRI 05/13/2025: Severely dilated LV with diffusely diminished contractility and EF 14%. There is also diminished contractility of the RV. No significant wall thickening, so infiltrative process of myocardium would be unlikely. Findings likely
represent nonischemic cardiomyopathy with late gadolinium enhancement a relatively poor prognostic indicator. Moderate MR. Mild TR.
Echo 04/13/2025: EF 15 to 20%, RV dilated with reduced systolic function, severe LA dilatation and moderate RA dilatation, severe MR, mild aortic insufficiency, mild to moderate TR with PAP 48 mmHg
Echo 05/20/2025: EF 10-15%, global hypokinesis, severe LV dilation, mild AR, severe MR, mild TR, estimated PAP 41 mmHg
Plan:
He initially presented with another episode of acute on chronic heart failure with reduced ejection fraction. Reassessment of echocardiogram reveals ejection fraction 10 to 15% with severe mitral regurgitation. Unclear etiology of nonischemic
cardiomyopathy. No clear family history of cardiomyopathy. Mitral valve may be secondary to LV dilation more so than the cause of his cardiomyopathy but still possible.
On initial assessment he was having frequent PVCs and short runs of nonsustained VT on monitoring. He and his describe dizziness on way to the hospital that is suspected to be secondary to symptomatic nonsustained ventricular tachycardia.
Also in the hospital he continues to feel fluttering consistent with symptomatic nonsustained ventricular tachycardia. He felt a different fluttering last night and short run of PAT noted.
I have reviewed telemetry. I have reviewed blood work.
- He has undergone diuresis and feels less abdominal bloating. Weight is stable. I did hold Lasix given low blood pressure and attempt to have him better tolerate guideline directed medical therapy for heart failure with reduced ejection fraction.
- Continue beta-jose carlos and titrate as able
- He is tolerating addition of Entresto fairly well and uptitrate as able as outpatient. Previously increased potassium. Potassium is stable/low.
- Replete potassium as needed
- Continue SGLT2 inhibitor
- Eventually could consider MRA as long as potassium remains stable
- Cost of Vericiguat $10 and acceptable however at this time given low blood pressure we will hold and continue to reassess.
-Short run of PAT discussed with patient and his at the bedside.
- Plan for ICD on Saturday given continued PVCs and nonsustained VT that appears to be intermittently symptomatic. They are agreeable to proceed and we discussed device and procedure at great length. At that time patient will also undergo right
heart catheterization to reassess hemodynamics. He remains [place] Heart Association class II-III. Heart failure with severely reduced ejection fraction
Given young age and severity of heart failure/cardiomyopathy on discharge I discussed with him consultation/evaluation at [facility] for comanagement. I have reached out to Dr. Oli Springer at [facility] and their
office will give him a call to set up follow-up.
HPI: Andrea is a 65 year old male with PMH of chronic HFrEF, NICM, nonobstructive CAD, HTN, preDM, and severe MR. He had recent admission at [facility] 04/12/2025 to 04/15/2025 with new heart failure and CM. EF noted to be 15% during that admission. He had
cardiac catheterization which revealed nonobstructive CAD and was started on medical therapy lasix, coreg, and jardiance. He had been started on CARMEN, but this was held due to hyperkalemia and plan was to consider starting entresto when seen in
follow up. He was doing well when seen in follow up, but appeared somewhat dry and lasix dose was reduced to 20mg daily as OP 04/23. He continued to feel well, but approximately 1 week later started feeling as though he was worsening with increased
SOB. His lasix dose was slowly uptitrated back to 40 mg daily, but SOB and weigh gain continued. He had episode of severe SOB yesterday, 05/19 which prompted ER evaluation. In ER, found to be in acute heart failure with proBNP elevated at 5760 and w/
pulmonary edema on chest xray. He was admitted and started on IV lasix. With IV lasix, weight has trended down and breathing improving.
Progress Note - Hat Finisher
Subjective
Date of Service: May 22, 2025
Some fluttering overnight. No dizziness. He is walking the hallways.
Objective
Labs:
05/22/25 04:28
05/22/25 04:28
Labs
Hgb 15.2 g/dL (13.0-18.0) 05/22/25 04:28
Hct 46.6 % (39.0-52.0) 05/22/25 04:28
Plt Count 131 10^3/uL (130-400) 05/22/25 04:28
Sodium 139 mmol/L (135-145) 05/22/25 04:28
Potassium 4.1 mmol/L (3.5-5.1) 05/22/25 04:28
BUN 26 mg/dl (9-20) H 05/22/25 04:28
Creatinine 0.9 mg/dL (0.7-1.3) 05/22/25 04:28
Glucose 93 mg/dl (70-99) 05/22/25 04:28
Vital Signs and I&O:
Vital Signs
Temp Pulse Resp BP Pulse Ox
97.7 F 77 16 86/72 97
05/22/25 15:27 05/22/25 15:27 05/22/25 15:27 05/22/25 11:47 05/22/25 15:27
Vital Signs
Temp Pulse Resp BP Pulse Ox
97.7 F 77 16 86/72 97
05/22/25 15:27 05/22/25 15:27 05/22/25 15:27 05/22/25 11:47 05/22/25 15:27
Intake & Output
05/20/25 05/21/25 05/22/25 05/23/25
06:59 06:59 06:59 06:59
Intake Total 240 / 240 960 / 960
Output Total 725 / 725 1800 / 1800 1525 / 1525
Balance -725 / -725 -1560 / -1560 -565 / -565
Physical Exam
Physical Exam
General: Well developed, well nourished in NAD.
Neck: Supple, no JVD, HJR, carotids +2 B/L, no bruits bilaterally.
Heart: displaced PMI, RRR, 2/6 apical systolic murmur
Lungs: Clear to auscultation bilaterally, no wheeze, rhonchi, rubs bilaterally,
Abdomen: Less hepatomegaly
Extremities: No clubbing, cyanosis or edema bilaterally.
Neuro: Grossly nonfocal, awake, alert and oriented x3.
[2025-05-22] MEDS: LOVENOX 40 MG SC (17:02)
[2025-05-22] MEDS: LIPITOR 20 MG PO (17:02)
[2025-05-22] MEDS: ELAVIL 25 MG PO (22:04)
[2025-05-22] MEDS: AMBIEN 10 MG PO (22:04)
--- NOTE | 2025-05-22 22:16 | PTCARENOTE ---
Assumed care on pt at 1900, aaox3, denies cp, dizziness, SOB. Walking in the room and hallways without any complaints. SR on the tele monitor, with frequent PVC's, HR 80-90's, BP stable, tolerated coreg and entresto scheduled at bedtime. Call choudhury
within reach.
[2025-05-23] VITALS (9 sets, daily range): BP systolic 89–106; BP diastolic 62–86; BMI 24.4
[2025-05-23 05:48] LABS: Hematocrit 43.9 % (39.0-52.0); Hemoglobin 14.8 g/dL (13.0-18.0); Mean Corp Hgb Conc. 33.7 g/dL (33.0-37.0); Mean Corpuscular Volume 88.0 fL (80.0-94.0); Platelet Count 129 10^3/uL (130-400); Red Cell Dist. Width 13.1 % (11.5-14.5)
[2025-05-23 06:12] LABS: Blood Urea Nitrogen 25 mg/dl (9-20); Calcium 8.9 mg/dl (8.4-10.2); Carbon Dioxide 26 mmol/L (22-30); Chloride 108 mmol/L (98-107); Estimated Creatinine Clearance 112 ml/min; Glucose 103 mg/dl (70-99); Magnesium 2.2 mg/dl (1.6-2.3); Potassium 4.3 mmol/L (3.5-5.1); Sodium 138 mmol/L (135-145); eGFR > 60.00
--- NOTE | 2025-05-23 08:02 | W.PN.HOSP.TC ---
Today's Communication/Plan
-
Feels well. Lungs dry. Euvolemic.
Assessment / Plan
Assessment / Plan
65-year-old with recent diagnosis of nonischemic cardiomyopathy with an EF prior to this hospitalization of 15 to 20%, p/w exertional dyspnea and weight gain (10 pounds).
He reported compliance with his diuretic, salt restriction and fluid restriction.
1. Acute on chronic systolic HF with nonischemic cardiomyopathy with known past EF of 15 to 20
repeat ECHO 10-15%
diuresis per cards (see their daily note):
Euvolemic now
Hold off lasix
Plan continue to be for ICD on Saturday given continued PVCs and nonsustained VT that appears to be intermittently symptomatic.
They are agreeable to proceed and we discussed device and procedure at great length.
At that time patient will also undergo right heart catheterization to reassess hemodynamics.
He remains [place] Heart Association class II-III. Heart failure with severely reduced ejection fraction'
entresto added per pt--cont coreg/Farxiga--apprec cards--for ICD Saturday
2. hypokalemia and in process of diuresis
See above
K today 4.3
Check k daily
Replete K as needed
3. Constipation - has happened in past hospitalization
Requested miralax
Miralax added
DVT proph�Lovenox
CODE STATUS�full code
Anticipated Discharge: 24 - 48 hours
Subjective/Interval History
-
Date of Service: May 23, 2025
Slept well. No breathing difficulties lying flat.
Objective Data
-
Labs:
Laboratory Results
05/23/25
05:22
WBC 7.0
Hgb 14.8
Hct 43.9
Plt Count 129 L
Sodium 138
Potassium 4.3
Chloride 108 H
Carbon Dioxide 26
BUN 25 H
Creatinine 0.7
Glucose 103 H
Calcium 8.9
Vital Signs:
Vital Signs
Temp Pulse Resp BP Pulse Ox
97.7 F 78 20 94/73 97
05/23/25 07:37 05/23/25 07:37 05/23/25 07:37 05/23/25 07:37 05/23/25 07:37
I&O
05/22/25 05/23/25 05/24/25
06:59 06:59 06:59
Intake Total 960 / 960 480 / 480
Output Total 1525 / 1525 1125 / 1125
Balance -565 / -565 -645 / -645
Review of Systems
-
History Source: Patient
All other systems: Reviewed and negative
Physical Exam
-
General: Well Developed, Well Nourished, No Apparent Distress, Comfortable and Conversant
HEENT: Normocephalic, Moist Mucous Membranes, Nose Appears Normal and Ears Appear Normal
Respiratory: Clear to Auscultation
Cardiac: Regular Rhythm, S1/S2 and Murmur
GI: Soft, Nontender and Nondistended
Musculoskeletal: No Clubbing, No Cyanosis and No Edema
Skin: Warm and Dry
Neuro: Awake, Alert and Oriented
Psych: Calm
Data Reviewed
-
Labs: Labs Reviewed by me
[2025-05-23] MEDS: ENTRESTO 24 MG/26 MG 1 TAB PO ×2 (08:06→20:20)
[2025-05-23] MEDS: COREG 6.25 MG PO ×2 (08:06→20:20)
[2025-05-23] MEDS: FARXIGA 10 MG PO (08:06)
[2025-05-23] MEDS: ASPIR LOW (ENTERIC COATED) 81 MG PO (08:06)
[2025-05-23] MEDS: LASIX 40 MG IV (11:02)
--- NOTE | 2025-05-23 11:44 | W.PN.CARDCBS ---
Today's Communication / Plan
-
Continue guideline directed medical therapy for heart failure with reduced ejection fraction as blood pressure tolerates.
Plan for dual-chamber ICD for sudden cardiac risk reduction.
At time of ICD implant will plan for right heart catheterization to better assess volume status in the setting of his relative hypotension.
Impression / Plan
-
PCP: Dr. Suarez
All Purpose Clerk: Dr. Carlo Mathews
Impression:
Presented with SOB, weight gain
Acute on chronic HFrEF
Nonischemic cardiomyopathy, EF 10-15%
Nonobstructive CAD by cardiac cath 04/13/2025
h/o smoking, now vaping
HTN
Prediabetes
Severe MR by echo 04/13/2025
LHC 04/13/2025: Elevated right and left ventricular filling pressures. Dilated CM with global hypokinesis and EF 15%. Nonobstructive CAD.
Cardiac MRI 05/13/2025: Severely dilated LV with diffusely diminished contractility and EF 14%. There is also diminished contractility of the RV. No significant wall thickening, so infiltrative process of myocardium would be unlikely. Findings likely
represent nonischemic cardiomyopathy with late gadolinium enhancement a relatively poor prognostic indicator. Moderate MR. Mild TR.
Echo 04/13/2025: EF 15 to 20%, RV dilated with reduced systolic function, severe LA dilatation and moderate RA dilatation, severe MR, mild aortic insufficiency, mild to moderate TR with PAP 48 mmHg
Echo 05/20/2025: EF 10-15%, global hypokinesis, severe LV dilation, mild AR, severe MR, mild TR, estimated PAP 41 mmHg
Plan:
He initially presented with another episode of acute on chronic heart failure with reduced ejection fraction. Reassessment of echocardiogram reveals ejection fraction 10 to 15% with severe mitral regurgitation. Unclear etiology of nonischemic
cardiomyopathy. No clear family history of cardiomyopathy. Mitral valve may be secondary to LV dilation more so than the cause of his cardiomyopathy but still possible.
On initial assessment he was having frequent PVCs and short runs of nonsustained VT on monitoring. He and his describe dizziness on way to the hospital that is suspected to be secondary to symptomatic nonsustained ventricular tachycardia.
Also in the hospital he continues to feel fluttering consistent with symptomatic nonsustained ventricular tachycardia. He felt a different fluttering last night and short run of PAT noted.
I have reviewed telemetry. I have reviewed blood work.
- He has undergone diuresis and feels less abdominal bloating. Weight is stable. I did hold Lasix given low blood pressure and attempt to have him better tolerate guideline directed medical therapy for heart failure with reduced ejection fraction.
- Continue beta-jose carlos and titrate as able
- He is tolerating addition of Entresto fairly well and uptitrate as able as outpatient. Previously increased potassium. Potassium is stable/low.
- Replete potassium as needed
- Continue SGLT2 inhibitor
- Eventually could consider MRA as long as potassium remains stable
- Cost of Vericiguat $10 and acceptable however at this time given low blood pressure we will hold and continue to reassess.
Plan for ICD on Saturday given high risk of sudden with symptomatic nonsustained VT and severely reduced left ventricular systolic function despite guideline directed medical therapy, [place] heart association class III.
I showed him a model of a dual-chamber ICD. I discussed implantation procedure including possible risks. I discussed lifestyle modifications associated with ICD implantation.
Informed consent obtained by me. We will also plan for right heart cath to better assess hemodynamics in the setting of his hypotension but likely volume overload.
Given young age and severity of heart failure/cardiomyopathy on discharge discussed consultation/evaluation at [facility] for comanagement. Dr Alma Mathews has reached out to Dr. Oli Springer at [facility] and
their office will give him a call to set up follow-up.
Total time spent today was 50 minutes in preparing to see the patient, seeing the patient and coordination of care. This included review of recent laboratory evaluations, cardiact testing, imaging studies, primary care rtecords, specialty
consultations, hospital records, as well as personally interviewing and examining the patient, which included discussion of their tests, review/ordering medications, and communicating with other healthcare professionals and also treatment planning
as well as counseling.
HPI: Andrea is a 65 year old male with PMH of chronic HFrEF, NICM, nonobstructive CAD, HTN, preDM, and severe MR. He had recent admission at [facility] 04/12/2025 to 04/15/2025 with new heart failure and CM. EF noted to be 15% during that admission. He had
cardiac catheterization which revealed nonobstructive CAD and was started on medical therapy lasix, coreg, and jardiance. He had been started on CARMEN, but this was held due to hyperkalemia and plan was to consider starting entresto when seen in
follow up. He was doing well when seen in follow up, but appeared somewhat dry and lasix dose was reduced to 20mg daily as OP 04/23. He continued to feel well, but approximately 1 week later started feeling as though he was worsening with increased
SOB. His lasix dose was slowly uptitrated back to 40 mg daily, but SOB and weigh gain continued. He had episode of severe SOB yesterday, 05/19 which prompted ER evaluation. In ER, found to be in acute heart failure with proBNP elevated at 5760 and w/
pulmonary edema on chest xray. He was admitted and started on IV lasix. With IV lasix, weight has trended down and breathing improving.
Progress Note - All Purpose Clerk
Subjective
Date of Service: May 23, 2025
Denies chest pain shortness of breath palpitations at rest.
Objective
Labs:
05/23/25 05:22
05/23/25 05:22
Labs
Hgb 14.8 g/dL (13.0-18.0) 05/23/25 05:22
Hct 43.9 % (39.0-52.0) 05/23/25 05:22
Plt Count 129 10^3/uL (130-400) L 05/23/25 05:22
Sodium 138 mmol/L (135-145) 05/23/25 05:22
Potassium 4.3 mmol/L (3.5-5.1) 05/23/25 05:22
BUN 25 mg/dl (9-20) H 05/23/25 05:22
Creatinine 0.7 mg/dL (0.7-1.3) 05/23/25 05:22
Glucose 103 mg/dl (70-99) H 05/23/25 05:22
Vital Signs and I&O:
Vital Signs
Temp Pulse Resp BP Pulse Ox
97.7 F 76 20 89/72 97
05/23/25 07:37 05/23/25 11:02 05/23/25 07:37 05/23/25 11:02 05/23/25 07:37
Vital Signs
Temp Pulse Resp BP Pulse Ox
97.7 F 76 20 89/72 97
05/23/25 07:37 05/23/25 11:02 05/23/25 07:37 05/23/25 11:02 05/23/25 07:37
Intake & Output
05/21/25 05/22/25 05/23/25 05/24/25
06:59 06:59 06:59 06:59
Intake Total 240 / 240 960 / 960 480 / 480
Output Total 1800 / 1800 1525 / 1525 1125 / 1125
Balance -1560 / -1560 -565 / -565 -645 / -645
Physical Exam
Physical Exam
General: Well developed, well nourished in NAD.
Neck: Supple, no JVD, HJR, carotids +2 B/L, no bruits bilaterally.
Heart: Normal S1 and S2, no S3, no S4, displaced PMI, RRR, 2/6 apical systolic murmur
Lungs: Clear to auscultation bilaterally, no wheeze, rhonchi, rubs bilaterally,
Abdomen: Less hepatomegaly
Extremities: No clubbing, cyanosis or edema bilaterally.
Neuro: Grossly nonfocal, awake, alert and oriented x3.
[2025-05-23] MEDS: LOVENOX 40 MG SC (17:36)
[2025-05-23] MEDS: LIPITOR 20 MG PO (17:36)
[2025-05-23] MEDS: AMBIEN 10 MG PO (22:05)
[2025-05-23] MEDS: ELAVIL 25 MG PO (22:05)
[2025-05-23] MEDS: OCEAN, SALINE MIST 1 SPRAYS NASAL (22:49)
[2025-05-24] VITALS (14 sets, daily range): BP systolic 80–108; BP diastolic 61–86; BMI 24.4
[2025-05-24 04:19] LABS: Hematocrit 42.9 % (39.0-52.0); Hemoglobin 14.2 g/dL (13.0-18.0); Mean Corp Hgb Conc. 33.1 g/dL (33.0-37.0); Mean Corpuscular Volume 88.1 fL (80.0-94.0); Platelet Count 123 10^3/uL (130-400); Red Cell Dist. Width 13.1 % (11.5-14.5)
[2025-05-24 04:49] LABS: Blood Urea Nitrogen 21 mg/dl (9-20); Calcium 9.0 mg/dl (8.4-10.2); Carbon Dioxide 26 mmol/L (22-30); Chloride 107 mmol/L (98-107); Estimated Creatinine Clearance 112 ml/min; Glucose 106 mg/dl (70-99); Potassium 4.0 mmol/L (3.5-5.1); Sodium 137 mmol/L (135-145); eGFR > 60.00
--- NOTE | 2025-05-24 06:37 | PTCARENOTE ---
Pt NSR on monitor. Denies SOB or any discomfort. Ambulates independently. NPO for ICD and CC. Prep completed in Am
--- NOTE | 2025-05-24 08:14 | W.ICD.CONTRA ---
Post ICD/ASSISTANT PASTRY CHEF-D
-
History of KS?: No
LV Function
Left ventricular function study result?: Ejection Fraction </= 35%
ACEI/ARB/ARNI
Patient already on ACEI/ARB/ARNI: Yes
Beta-Theodora
Patient already on Beta Theodora: Yes
[2025-05-24] MEDS: LASIX 60 MG PO (08:32)
[2025-05-24] MEDS: ASPIR LOW (ENTERIC COATED) 81 MG PO (08:32)
[2025-05-24] MEDS: FARXIGA 10 MG PO (08:32)
--- NOTE | 2025-05-24 08:55 | W.PN.HOSP.TC ---
Today's Communication/Plan
-
see A/P
Assessment / Plan
Assessment / Plan
65-year-old with recent diagnosis of nonischemic cardiomyopathy with an EF prior to this hospitalization of 15 to 20%, p/w exertional dyspnea and weight gain (10 pounds).
He reported compliance with his diuretic, salt restriction and fluid restriction.
A/P:
# Acute on chronic systolic HF with nonischemic cardiomyopathy with known past EF of 15 to 20%
repeat ECHO 10-15%
s/p IV lasix, now on PO lasix 60 mg daily
Plan for ICD on Thursday 05/24 given continued PVCs and nonsustained VT that appears to be intermittently symptomatic.
Also for right heart catheterization to reassess hemodynamics.
Cont coreg/Farxiga, added GABE chand to check cost of Entresto
# hypokalemia 2/2 diuresis, resolved
# Constipation
Requested miralax, added
DVT proph�Lovenox
CODE STATUS�full code
DW Card
Anticipated Discharge: Within 24 hours
Subjective/Interval History
-
Date of Service: May 24, 2025
Objective Data
-
Labs:
Laboratory Results
05/24/25
04:04
WBC 7.5
Hgb 14.2
Hct 42.9
Plt Count 123 L
Sodium 137
Potassium 4.0
Chloride 107
Carbon Dioxide 26
BUN 21 H
Creatinine 0.7
Glucose 106 H
Calcium 9.0
Vital Signs:
Vital Signs
Temp Pulse Resp BP Pulse Ox
36.6 C 89 20 84/68 98
05/24/25 07:33 05/24/25 08:32 05/24/25 07:33 05/24/25 08:32 05/24/25 07:33
I&O
05/23/25 05/24/25 05/25/25
06:59 06:59 06:59
Intake Total 480 / 480 260 / 260
Output Total 1125 / 1125 1630 / 1630
Balance -645 / -645 -1370 / -1370
Review of Systems
-
History Source: Patient
All other systems: Reviewed and negative
Physical Exam
-
General: Well Developed, Well Nourished, No Apparent Distress, Comfortable and Conversant
HEENT: Normocephalic, Moist Mucous Membranes, Nose Appears Normal and Ears Appear Normal
Respiratory: Clear to Auscultation
Cardiac: Regular Rhythm, S1/S2 and Murmur
GI: Soft, Nontender and Nondistended
Musculoskeletal: No Clubbing, No Cyanosis and No Edema
Skin: Warm and Dry
Neuro: Awake, Alert and Oriented
Psych: Calm and Intact Judgement/Insight
Data Reviewed
-
Medical Tests (Nuc Med, Echo etc): Report Reviewed by me
Labs: Labs Reviewed by me
[2025-05-24] MEDS: ENTRESTO 24 MG/26 MG PO (09:21)
[2025-05-24] MEDS: COREG 6.25 MG PO ×2 (09:21→19:56)
--- NOTE | 2025-05-24 10:21 | PTCARENOTE ---
pt left for electroplating laborer. report given to JAMES.
--- NOTE | 2025-05-24 12:36 | PTCARENOTE ---
received pt back from clinical laboratory aides teacher. Left arm immbolizer intact, left chest site CDI. at bedside. Call choudhury within reach.
--- NOTE | 2025-05-24 14:51 | CM ---
Reviewed chart. Met with and Mrs. Johnson to review discharge plans. He states prior to admission he resides with his spouse in three story home with two steps to enter. He states the main suite is on the second floor. He states he has a full
bathroom/bedroom on the first floor also. He states prior to admission he was independent with ambulation and adls. He states he does not have any DME in the home. He has a prescription plan. Telephone call to his Pharmacy Benefit ,
([phone]) [employer] [employer] to check on coverage for Entresto. His co-pay for Entresto would be $85.00 a month retail or $130.00 for three months via mail order. He has commercial insurance and he can use the $10.00 coupon. Placed the Entresto coupon
in his red discharge folder. He is agreeable to the $10.00 co-pay. Medical work-up in progress. The discharge plan is to return home with his spouse when medically stable.
--- NOTE | 2025-05-24 17:11 | ITS.CL.ICD ---
Certified Peer Specialist - ICD
Implantable Cardioverter Defibrillator
Procedure Report:
ICD IMPLANTATION REPORT
Date of Procedure: May 24, 2025
Primary Care Provider: Dr Hermilo Suarez
PROCEDURES:
1. Right Heart Cath, 2. ICD Implant
HISTORY:
HFrEF with LVEF 10-15% despite guideline directed medical therapy for HFrEF and symptomatic VT (NSVT). NYHA class 2.
Additionally cardiac MRI from May 13, 2025 finds LVEF 14% as well as enhancement involving the inferior through lateral cook of the apical and distal portion of the left ventricle. There is a crescent of enhancement involving the inferior and
inferolateral wall of the midportion of the ventricle, also extending to involve the lateral wall and inferolateral wall towards the base of the left ventricle. This appears to be within the midportion of the myocardium, with relatively thin
myocardium diffusely involving the left ventricle. The finding of late gadolinium enhancement is known to be a poor prognostic indicator.
Life expectancy > 1 year
Assessment of intravascular volume has been difficult given his relative hypotension in addition to ICD implantation, right heart catheterization is requested to help guide assessment of intravascular volume and medical therapy.
Lidocaine with epi was used for local anesthesia. Central venous access was obtained via axillary venipuncture. An incision was made along the left chest and a pre-pectoral pocket was formed. Using a Seldinger technique peel-away sheaths were
placed.
Right heart catheterization was performed:
HEMODYNAMICS:
RA: 9 mmHg, RV: 33/7 mmHg, PA: 32/19 mmHg,
PCWP: 18 mmHg, PA sat: 69%
CO: 4.1 L/min, CI: 2.1 L/min
SVR: 1100
Next, the pacing leads were placed under fluoroscopic guidance.
Once testing (see below) showed adequate and stable function, the leads were secured using the suture sleeves. The pocket was liberally irrigated with antibiotic solution. The leads were connected to the generator header and the leads and
generator were placed within the pocket. Fluoroscopy confirmed stable lead position. The pocket was closed in the typical fashion.
FLUOROSCOPY:
Fluoroscopy was used to guide lead placement.
IMPLANTS:
ICD Medtronic [id number], SN [id number], Left Pectoral
RA Medtronic 5076, SN [id number], RAA
RV Medtronic 6935, SN [id number], RV apical septum
DEVICE TESTING:
Sensing: RA 1.6 mV, RV 7.6 mV
Capture: RA 1.2 V@0.5ms, RV 0.5 V@0.5ms
Ohms: RA 513, RV 456
FINAL PROGRAMMING:
Dain Pacing: MVP 50 -130 ppm
Tachy parameters:
VF: 188 bpm, Shock
VT: 150 bpm, Monitor
COMPLICATIONS:
None
CONCLUSIONS:
1. Right heart hemodynamics demonstrate demonstrate overall well compensated hemodynamic state with appropriate intravascular volume.
2. Successful implant of dual chamber ICD system.
RECOMMENDATIONS:
Post op care (tele, CXR, IV abx).
In-Office wound check in 5-7 days.
Copy to: Dr Hermilo Suarez
[2025-05-24] MEDS: LOVENOX 40 MG SC (17:26)
[2025-05-24] MEDS: ANCEF 5 IV (17:26)
[2025-05-24] MEDS: LIPITOR 20 MG PO (17:26)
[2025-05-24] MEDS: ENTRESTO 24 MG/26 MG 1 TAB PO (19:56)
--- NOTE | 2025-05-24 20:45 | PTCARENOTE ---
Assumed care on pt at 1900, aaox3, denies CP, SOB or any other discomfort, SR on the tele monitor w/ PVC's, HR 70-80's. bp soft. Left arm immobilizer intact, left chest site CDI. Call choudhury within reach.
[2025-05-24] MEDS: TYLENOL 650 MG PO (22:00)
[2025-05-24] MEDS: ELAVIL 25 MG PO (22:00)
[2025-05-24] MEDS: AMBIEN 10 MG PO (22:00)
[2025-05-25] MEDS: ANCEF 5 IV (03:05)
[2025-05-25 03:09] VITALS: BP 87/69
[2025-05-25 03:11] VITALS: BP 88/74
[2025-05-25 03:22] VITALS: BP 93/75
[2025-05-25 04:22] LABS: Hematocrit 45.0 % (39.0-52.0); Hemoglobin 14.6 g/dL (13.0-18.0); Mean Corp Hgb Conc. 32.4 g/dL (33.0-37.0); Mean Corpuscular Volume 89.6 fL (80.0-94.0); Platelet Count 125 10^3/uL (130-400); Red Cell Dist. Width 13.2 % (11.5-14.5)
[2025-05-25 04:47] LABS: Blood Urea Nitrogen 18 mg/dl (9-20); Calcium 8.7 mg/dl (8.4-10.2); Carbon Dioxide 27 mmol/L (22-30); Chloride 103 mmol/L (98-107); Estimated Creatinine Clearance 98 ml/min; Glucose 91 mg/dl (70-99); Magnesium 2.1 mg/dl (1.6-2.3); Potassium 4.2 mmol/L (3.5-5.1); Sodium 138 mmol/L (135-145); eGFR > 60.00
[2025-05-25 06:00] VITALS: BMI 24.4
[2025-05-25 08:21] VITALS: BP 98/82
[2025-05-25] MEDS: LASIX 60 MG PO (08:26)
[2025-05-25] MEDS: COREG 6.25 MG PO (08:26)
[2025-05-25] MEDS: FARXIGA 10 MG PO (08:26)
[2025-05-25] MEDS: ENTRESTO 24 MG/26 MG 1 TAB PO (08:26)
[2025-05-25] MEDS: ASPIR LOW (ENTERIC COATED) 81 MG PO (08:26)
[2025-05-25] MEDS: TYLENOL 650 MG PO (08:26)
--- NOTE | 2025-05-25 10:18 | W.PN.HOSP.TC ---
Today's Communication/Plan
-
see A/P
Assessment / Plan
Assessment / Plan
65-year-old with recent diagnosis of nonischemic cardiomyopathy with an EF prior to this hospitalization of 15 to 20%, p/w exertional dyspnea and weight gain (10 pounds).
He reported compliance with his diuretic, salt restriction and fluid restriction.
A/P:
# Acute on chronic systolic HF with nonischemic cardiomyopathy with known past EF of 15 to 20%
repeat ECHO 10-15%
s/p IV lasix, now on PO lasix 60 mg daily
s/p ICD placement Thursday 05/24 given continued PVCs and nonsustained VT that appears to be intermittently symptomatic.
Also s/p right heart catheterization 05/24, pending report
Cont coreg/Farxiga, added entresto,
# hypokalemia 2/2 diuresis, resolved
# Constipation
Requested miralax, added
DVT proph�Lovenox
CODE STATUS�full code
DW Card
Anticipated Discharge: Today
Subjective/Interval History
-
Date of Service: May 25, 2025
Objective Data
-
Labs:
Laboratory Results
05/25/25
03:35
WBC 8.2
Hgb 14.6
Hct 45.0
Plt Count 125 L
Sodium 138
Potassium 4.2
Chloride 103
Carbon Dioxide 27
BUN 18
Creatinine 0.8
Glucose 91
Calcium 8.7
Vital Signs:
Vital Signs
Temp Pulse Resp BP Pulse Ox
36.5 C 86 16 98/82 98
05/25/25 08:21 05/25/25 08:26 05/25/25 08:21 05/25/25 08:26 05/25/25 08:21
I&O
05/24/25 05/25/25 05/26/25
06:59 06:59 06:59
Intake Total 260 / 260 240 / 240
Output Total 1630 / 1630 2200 / 2200 725 / 725
Balance -1370 / -1370 -1959 / -1960 -725 / -725
Review of Systems
-
History Source: Patient
All other systems: Reviewed and negative
Physical Exam
-
General: Well Developed, Well Nourished, No Apparent Distress, Comfortable and Conversant
HEENT: Normocephalic, Moist Mucous Membranes, Nose Appears Normal and Ears Appear Normal
Respiratory: Clear to Auscultation and Non Labored Respirations; Negative Accessory Resp Muscle Use
Cardiac: Regular Rhythm, S1/S2, Murmur and Other (ICD in place )
GI: Soft, Nontender and Nondistended
Musculoskeletal: No Clubbing, No Cyanosis and No Edema
Skin: Warm and Dry
Neuro: Awake, Alert and Oriented
Psych: Calm and Intact Judgement/Insight
Data Reviewed
-
Medical Tests (Nuc Med, Echo etc): Report Reviewed by me
Labs: Labs Reviewed by me
--- NOTE | 2025-05-25 11:02 | CM ---
Reviewed chart. Met with Mr. Johnson to review discharge plans. He states he is feeling well and maybe able to go home soon. The $10.00 Entresto coupon is in his red discharge folder. He has been ambulating in the hallway. Prior to admission he
resides with his spouse in a three story home with two steps to enter. He has a full flight of steps to get to his bedroom/full bathroom. He has a bedroom and full bathroom on the first floor. Prior to admission he was independent with ambulation
and adls. He does not have any DME in the home. He has a prescription plan with [facility]. Medical work-up in progress. The discharge plan is to return home with his spouse when medically stable.
--- NOTE | 2025-05-25 11:36 | W.PN.CARDCBS ---
Addendum entered and electronically signed by Kenny Colindres MD 05/25/25 12:00:
I saw and examined the patient.
The Bill Collector's note was reviewed and I agree with the note.
Comment: Briefly, 65-year-old man with past medical history of nonischemic cardiomyopathy with severely reduced left ventricular systolic function who presented in acute decompensated heart failure.
With IV diuresis he appears euvolemic on exam and filling pressures were reasonable based on invasive hemodynamics on 05/24/2025
Agree with transition back to oral Lasix 60 mg daily
We reviewed daily weights and discussed that his dry weight is likely around 170 pounds
Continue GDMT�Entresto, Coreg, Farxiga
Spironolactone was not added with concern for precipitating hyperkalemia. Can consider the addition as an outpatient.
Telemetry reviewed with occasional PVCs and short runs of nonsustained VT
Continue beta-jose carlos
Status post ICD implant yesterday
Stable cardiac status, outpatient follow-up has been arranged
Original Note:
Today's Communication / Plan
-
s/p ICD 05/24
continue coreg, entresto, farxiga
lasix 60mg daily
continue asa, lipitor
BMP/proBNP in 1 week
OP cardiac follow up arranged
ok for DC
Impression / Plan
-
PCP: Dr. Suarez
Plastic And Reconstructive Surgeon: Dr. Carlo Mathews
Impression:
Presented with SOB, weight gain
Acute on chronic HFrEF
Nonischemic cardiomyopathy, EF 10-15%
Nonobstructive CAD by cardiac cath 04/13/2025
h/o smoking, now vaping
HTN
Prediabetes
Severe MR by echo 04/13/2025
LHC 04/13/2025: Elevated right and left ventricular filling pressures. Dilated CM with global hypokinesis and EF 15%. Nonobstructive CAD.
Cardiac MRI 05/13/2025: Severely dilated LV with diffusely diminished contractility and EF 14%. There is also diminished contractility of the RV. No significant wall thickening, so infiltrative process of myocardium would be unlikely. Findings likely
represent nonischemic cardiomyopathy with late gadolinium enhancement a relatively poor prognostic indicator. Moderate MR. Mild TR.
Echo 04/13/2025: EF 15 to 20%, RV dilated with reduced systolic function, severe LA dilatation and moderate RA dilatation, severe MR, mild aortic insufficiency, mild to moderate TR with PAP 48 mmHg
Echo 05/20/2025: EF 10-15%, global hypokinesis, severe LV dilation, mild AR, severe MR, mild TR, estimated PAP 41 mmHg
Plan:
- He presented with acute on chronic heart failure with reduced EF
- Echo this admission with EF 10 to 15% with severe MR, etiology unclear as cath with nonobstructive CAD 04/13/2025. Cardiac MRI 05/13/2025 was unrevealing for etiology as well
- Continue Coreg, Entresto, Farxiga
- Weight down from admission and patient feeling symptomatically improved. Transition to p.o. Lasix 60 mg daily
- Keep K greater than 4 and mag greater than 2. BMP/proBNP in 1 week upon discharge
- Eventually could consider MRA as long as potassium remains stable
- Cost of Vericiguat $10 and acceptable however at this time given low blood pressure we will hold and continue to reassess.
- Given severely reduced LV systolic function and symptomatic NSVT despite guideline directed medical therapy, underwent Medtronic ICD placement 05/24/2025.
- Right heart cath at time of ICD with compensated volume status
- CXR 05/24 post ICD without PTX
- Discussed activity restrictions/limitations post ICD placement
- Patient working on follow-up for comanagement with Dr. Oli Springer at [facility]
- Outpatient cardiac follow-up including wound check appointment next week arranged
- Okay for discharge
- Discussed with nursing
HPI: Andrea is a 65 year old male with PMH of chronic HFrEF, NICM, nonobstructive CAD, HTN, preDM, and severe MR. He had recent admission at [facility] 04/12/2025 to 04/15/2025 with new heart failure and CM. EF noted to be 15% during that admission. He had
cardiac catheterization which revealed nonobstructive CAD and was started on medical therapy lasix, coreg, and jardiance. He had been started on CARMEN, but this was held due to hyperkalemia and plan was to consider starting entresto when seen in
follow up. He was doing well when seen in follow up, but appeared somewhat dry and lasix dose was reduced to 20mg daily as OP 04/23. He continued to feel well, but approximately 1 week later started feeling as though he was worsening with increased
SOB. His lasix dose was slowly uptitrated back to 40 mg daily, but SOB and weigh gain continued. He had episode of severe SOB yesterday, 05/19 which prompted ER evaluation. In ER, found to be in acute heart failure with proBNP elevated at 5760 and w/
pulmonary edema on chest xray. He was admitted and started on IV lasix. With IV lasix, weight has trended down and breathing improving.
Progress Note - Plastic And Reconstructive Surgeon
Subjective
Date of Service: May 25, 2025
Feeling well. Eager for discharge
Objective
Labs:
05/25/25 03:35
05/25/25 03:35
Labs
Hgb 14.6 g/dL (13.0-18.0) 05/25/25 03:35
Hct 45.0 % (39.0-52.0) 05/25/25 03:35
Plt Count 125 10^3/uL (130-400) L 05/25/25 03:35
Sodium 138 mmol/L (135-145) 05/25/25 03:35
Potassium 4.2 mmol/L (3.5-5.1) 05/25/25 03:35
BUN 18 mg/dl (9-20) 05/25/25 03:35
Creatinine 0.8 mg/dL (0.7-1.3) 05/25/25 03:35
Glucose 91 mg/dl (70-99) 05/25/25 03:35
Vital Signs and I&O:
Vital Signs
Temp Pulse Resp BP Pulse Ox
97.7 F 86 16 98/82 98
05/25/25 08:21 05/25/25 08:26 05/25/25 08:21 05/25/25 08:26 05/25/25 08:21
Vital Signs
Temp Pulse Resp BP Pulse Ox
97.7 F 86 16 98/82 98
05/25/25 08:21 05/25/25 08:26 05/25/25 08:21 05/25/25 08:26 05/25/25 08:21
Intake & Output
05/23/25 05/24/25 05/25/25 05/26/25
07:59 07:59 07:59 07:59
Intake Total 480 / 480 260 / 260 240 / 240
Output Total 1125 / 1125 1630 / 1630 2200 / 2200 725 / 725
Balance -645 / -645 -1370 / -1370 -1960 / -1960 -725 / -725
Physical Exam
Physical Exam
GEN: No distress, awake, alert, oriented x3. sitting in chair
HEENT: supple, anicteric, mmm, EOMI
LUNGS: CTA bilaterally, no wheezes/rales
CV: Reg, S1/S2, 2/6 murmur
ABD: soft, BS+, NT/ND
EXT: No cyanosis, clubbing, edema
NEURO: Gross non-focal
SKIN: Warm, pink, dry. No rash. L chest site with dressing c/d/i, mild edema surrounding site, no significant ecchymoses
[2025-05-25 12:16] VITALS: BP 86/73
--- NOTE | 2025-05-25 13:53 | W.DCSUMMARY ---
Discharge Summary
Discharge Data
Date of Admission: 05/19/25
Date of Discharge: 05/25/25
Total time spent discharging patient (in min): 40
-
Pending Results: No
Hospital Course
Principal Diagnosis:
Acute on chronic systolic heart failure
nonsustained ventricular tachycardia status post ICD placement this admission
Chronic Diagnoses:�
Nonischemic cardiomyopathy with an EF prior to this hospitalization of 15 to 20%
Hypertension
Consultations:�
Cardiology
Procedures:�
ICD placement Thursday 05/24
Clinical course:�
This is a 65-year-old male with past medical history as stated above who presented with exertional dyspnea and weight gain (10 pounds).
He reported compliance with his diuretic, salt restriction and fluid restriction.
Of note, he was recently diagnosed with nonischemic cardiomyopathy, with an EF of 15 to 20%.
Problem 1:
Acute on chronic systolic heart failure with nonsustained VT which appears to be intermittently symptomatic.
His repeat echocardiogram this admission showed a further reduced ejection fraction to 10-15%.
He received IV Lasix while in the hospital, and was discharged with oral Lasix 60 mg daily (increased from prior to admission 40 mg daily).
He underwent ICD placement on Thursday 05/24.
He can continue with prior to admission coreg and Farxiga. Entresto was added this admission which he can continue going forward.
As for the rest of his medical problems, they were stable during his hospital stay.
Discharge Plan
-
Patient Disposition: Home (Routine Discharge)
Discharge Diagnosis/Procedures: Acute on chronic systolic heart failure with non-ischemic cardiomyopathy (EF this admission 10-15%);
status post ICD placement
Condition: Fair
Diet: As tolerated, Low Fat, Low Cholesterol, Low Sodium and Restrict fluids to 48 oz
Activity: As tolerated
Driving Restrictions: No driving for 1 week
Blood Work: BMP/proBNP in 1 week with result to your PCP/Brake [employer]r [employer]dra[employer]
Specialty Instructions: Weigh Daily- Call MD for wt gain/loss 3 lbs overnight/5 lbs in 1 week
Instructions: *[facility] Heart Failure Instructions
Stand Alone Forms: [facility] Inst - Implanted Device
Referrals:
[facility] [Provider Group] - 05/31/25 1:20 pm
Referral Note: Post device incision check appointment
[facility] [Outside] - 06/29/25 11:00 am
Referral Note: Cardiac Rehab Orientation appointment and� First Exercise appointment is on 06/29 at 11am.
The Cardiac Rehab gym is located on the first floor of the [facility].
Sheila Madrigal PA-C [Specified Professional Personl, Cardiology] - 06/09/25 10:20 am
Referral Note: Cardiology/Heart Failure followup
Hermilo Suarez MD [Family Provider, Family Practice] - in less than 1 week
Additional Discharge Medication Instructions: Lasix dose increased from 40 to 60 mg.
We have added Entresto
Prescriptions:
New
sacubitril-valsartan [Entresto] 24-26 mg Tablet
1 tab PO BID Qty: 60 0RF
furosemide 20 mg Tablet
60 mg PO DAILY Qty: 30 0RF
Continued
amitriptyline 25 mg tablet
25 mg PO HS
therapeutic multivitamin Tablet
1 tab PO DAILY
aspirin 81 mg Tablet,Delayed Release (Dr/Ec)
81 mg PO DAILY
calcium polycarbophil [FiberCon] 625 mg Tablet
1,250 mg PO BID
atorvastatin 20 mg Tablet
20 mg PO QPM Qty: 30 0RF
Jardiance 10 mg tablet
10 mg PO DAILY Qty: 30 0RF
carvedilol [Coreg] 6.25 mg Tablet
6.25 mg PO BID
phenolphthalein 90 mg Tablet
90 mg PO DAILYPRN PRN (Reason: CONSTIPATION)
docusate sodium [Colace] 100 mg Capsule
100 mg PO BIDPRN PRN (Reason: CONSTIPATION)
zolpidem [Ambien] 10 mg Tablet
10 mg PO HSPRN PRN (Reason: SLEEP)
Discontinued
furosemide 40 mg Tablet
40 mg PO DAILY Qty: 30 0RF
Discharge Orders:
Discharge Patient (As Directed); Ordered 05/25/25
Ordered By: Krystle Gutierrez
Care Plan Goals
Care Plan Goals:
Problem: Readiness for enhanced knowledge related to diagnosis and treatment plan
Goal: Understand your diagnosis and treatment plan needs, including medications if applicable.
Instructions: Know your diagnosis, underlying causes and treatment plan options, including medications if applicable. Consult with your health care team to learn about your diagnosis and treatment plan, including medications if applicable.
Discharge Date and Time
Discharge Date/Time: 05/25/25 12:43
Print Language: GEORGIAN
== END 2025-05-25 12:43 | disposition home or self-care (01) | DRG 275 ==
LOC: IVU 21:19
PROVIDERS: Emergency Medicine; ADMITTING PHYSICIAN Internal Medicine; ATTENDING PHYSICIAN Internal Medicine; EMERGENCY PHYSICIAN Emergency Medicine; FAMILY PHYSICIAN Family Medicine; OTHER PHYSICIAN Internal Medicine Cardiovascular Disease; REFERRING PHYSICIAN Internal Medicine Cardiovascular Disease
PROC: 02H63KZ Insertion of Defibrillator Lead into Right Atrium, Percutaneous Approach (ICD-10-PCS; 2025-05-24)
PROC: 02HK3KZ Insertion of Defibrillator Lead into Right Ventricle, Percutaneous Approach (ICD-10-PCS; 2025-05-24)
PROC: 4A023N6 Measurement of Cardiac Sampling and Pressure, Right Heart, Percutaneous Approach (ICD-10-PCS; 2025-05-24)
PROC: 0JH608Z Insertion of Defibrillator Generator into Chest Subcutaneous Tissue and Fascia, Open Approach (ICD-10-PCS; 2025-05-24)
DX: I11.0 Hypertensive heart disease with heart failure (principal); I50.23 Acute on chronic systolic (congestive) heart failure; I47.20 Ventricular tachycardia, unspecified; I42.0 Dilated cardiomyopathy; I49.3 Ventricular premature depolarization; G47.00 Insomnia, unspecified; I34.0 Nonrheumatic mitral (valve) insufficiency; I25.10 Atherosclerotic heart disease of native coronary artery without angina pectoris; E87.6 Hypokalemia; T50.1X5A Adverse effect of loop [high-ceiling] diuretics, initial encounter; I95.9 Hypotension, unspecified; K59.00 Constipation, unspecified; R73.03 Prediabetes; F17.290 Nicotine dependence, other tobacco product, uncomplicated; Z82.49 Family history of ischemic heart disease and other diseases of the circulatory system; Z79.82 Long term (current) use of aspirin
CPT/HCPCS: 33249; 71045; 71046; 76705; 80048; 80053; 83735; 83880; 85025; 85027; 93005; 93308; 93321; 93325; 93451; 96374; 99285; C1721; C1777; C1892; C1898; Q9967

== ENCOUNTER 2025-06-29 11:00 | Outpatient (RCR) | payer BC, SELFPAY ==
[2025-06-29 12:08] LABS: Glucose - Point of Care 107 mg/dl (70-99)
[2025-06-29 12:55] LABS: Glucose - Point of Care 112 mg/dl (70-99)
== END 2025-06-29 23:59 | disposition home or self-care (01) ==
LOC: CRHB 11:00
PROVIDERS: ATTENDING PHYSICIAN Internal Medicine Cardiovascular Disease; FAMILY PHYSICIAN Family Medicine
DX: I50.22 Chronic systolic (congestive) heart failure (principal); Z95.810 Presence of automatic (implantable) cardiac defibrillator
CPT/HCPCS: 82962; 93798

== ENCOUNTER → 2025-07-23 12:50 | Outpatient (REF) | payer BC, SELFPAY | LOC: HWRCS 12:50 | PROVIDERS: ATTENDING PHYSICIAN Physician Assistant Medical; FAMILY PHYSICIAN Family Medicine | DX: I42.8 Other cardiomyopathies (principal); I50.20 Unspecified systolic (congestive) heart failure | CPT/HCPCS: 93308 ==